=== PATIENT | male | born 1960 | race Caucasian/White ===

== ENCOUNTER 2017-08-01 19:33 | Inpatient (IN) | payer OTHER ==
--- OUTSIDE RECORDS SUMMARY | 2017-08-01 19:36 | XMS REPORT | Clinical Summary ---
:1960 Author Organization [facility] Address [address] [place] [address] Care Team Providers Name Role Phone Asked, No Pcp Primary Care Provider Unavailable Allergies Not on File Current Medications Not on file Active Problems Not on file Encounters Date Type Specialty Care Team Description 07/24/2017 Hospital Encounter Radiation Oncology Claude Grady MD 07/10/2017 Hospital Encounter Radiation Oncology Claude Grady MD after 07/31/2016 Social History Tobacco Use Types Packs/Day Years Used Date Never Assessed Sex Assigned at Date Recorded Not on file Last Filed Vital Signs Not on file Plan of Treatment Date Type Specialty Care Team Description 08/06/2017 Surgery Plastic Surgery Jacki Malave RADIATION SHMUEL GUERRA INSERTION, LESION [address], DIS[address] [facility], B [place], [place] SCAN W/ ANY OTHER [id number] INDICATED PROCEDURES [phone] 08/06/2017 Procedure Pass Plastic Surgery 08/06/2017 Hospital Encounter Plastic Surgery Jacki Malave MD [address] [place] [address] [phone] 08/13/2017 Surgery Plastic Surgery Jacki Malave RADIATION PLAQUE MD REMOVAL W/ ANY OTHER [address] INDICATED PROCEDURES [address] [place] [address] [phone] 08/13/2017 Procedure Pass Plastic Surgery 08/13/2017 Hospital Encounter Plastic Surgery Jacki Malave MD [address] [place] [address] [phone] Health Maintenance Due Date Last Done Comments COLONOSCOPY 2012 SHINGRIX VACCINE (#1) 2012 INFLUENZA VACCINE 10/24/2017 Results Not on fileafter 07/31/2016 Insurance Payer Benefit Plan / Group Subscriber ID Type Phone Address MEDICARE MEDICARE PART A AND B xxxxxxxxxx Medicare [place], [place] [phone] [address]
--- OUTSIDE RECORDS SUMMARY | 2017-08-01 19:37 | XMS REPORT | Clinical Summary ---
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 positioned. Ventricular volume is normal. Remote craniotomy noted on the right. Calvarium is otherwise intact. Visible paranasal sinuses are clear. No acute abnormality identified within the orbits. IMPRESSION: Chronic involutional changes without visible parenchymal infarct or hemorrhage. The findings were discussed with Dr. Faye of the [facility] emergency at 2250 hours on November 03, 2016. Signed: JR Connolly Robert MD Report Verified Date/Time: 11/03/2016 22:53:27 Reading Location: [facility] C013T Transitional Reading Room after 07/31/2016
--- OUTSIDE RECORDS SUMMARY | 2017-08-01 19:37 | XMS REPORT ---
:1960 [facility] Address [address] [place] [address] Dr. Iirzarry [address] [place] [id number] Care Team Providers Name Role Phone STEFF ROACH Unavailable Unavailable YUNIER ESTHER MAGUIRE Unavailable Unavailable Problems This patient has no known problems. Allergies, Adverse Reactions, Alerts This patient has no known allergies or adverse reactions. Medications This patient has no known medications. Results Test Description Test Time Test Comments Text Results Atomic Results Result Comments CBC W/PLT COUNT & AUTO DIFFERENTIAL 2017-01-31 12:21:00 Test Item Value Reference Range Comments WHITE BLOOD CELL COUNT (BEAKER) (test qthv=714) 16.8 K/ L 3.5-10.5 RED BLOOD CELL COUNT (BEAKER) (test rojf=139) 4.08 M/ L 4.63-6.08 HEMOGLOBIN (BEAKER) (test yltc=931) 13.5 GM/DL 13.7-17.5 HEMATOCRIT (BEAKER) (test syjg=553) 39.4 % 40.1-51.0 MEAN CORPUSCULAR VOLUME (BEAKER) (test pfny=122) 96.6 fL 79.0-92.2 MEAN CORPUSCULAR HEMOGLOBIN (BEAKER) (test sswx=211) 33.1 pg 25.7-32.2 MEAN CORPUSCULAR HEMOGLOBIN CONC (BEAKER) (test fqbi=214) 34.3 GM/DL 32.3- 36.5 RED CELL DISTRIBUTION WIDTH (BEAKER) (test otcp=950) 14.5 % 11.6-14.4 PLATELET COUNT (BEAKER) (test gcdl=694) 270 K/CU MM 150-450 MEAN PLATELET VOLUME (BEAKER) (test cpwy=300) 10.6 fL 9.4-12.4 NUCLEATED RED BLOOD CELLS (BEAKER) (test jazf=588) 0 /100 WBC 0-0 IMMATURE GRANULOCYTES-RELATIVE PERCENT (BEAKER) (test 1 % 0-1 vkwa=7420) NEUTROPHILS RELATIVE PERCENT (BEAKER) (test stcg=224) 44 % LYMPHOCYTES RELATIVE PERCENT (BEAKER) (test gozm=431) 38 % MONOCYTES RELATIVE PERCENT (BEAKER) (test zwge=708) 9 % EOSINOPHILS RELATIVE PERCENT (BEAKER) (test sppn=364) 6 % BASOPHILS RELATIVE PERCENT (BEAKER) (test morh=714) 1 % NEUTROPHILS ABSOLUTE COUNT (BEAKER) (test mfmv=526) 7.49 K/ L 1.78-5.38 LYMPHOCYTES ABSOLUTE COUNT (BEAKER) (test hniq=998) 6.41 K/ L 1.32-3.57 MONOCYTES ABSOLUTE COUNT (BEAKER) (test epnj=822) 1.58 K/ L 0.30-0.82 EOSINOPHILS ABSOLUTE COUNT (BEAKER) (test dffg=610) 1.00 K/ L 0.04-0.54 BASOPHILS ABSOLUTE COUNT (BEAKER) (test xkrm=231) 0.13 K/ L 0.01-0.08 (MANUAL DIFFERENTIAL)2017-01-31 12:21:00 Test Item Value Reference Range Comments TOTAL COUNTED (BEAKER) (test smyb=6304) WBC MORPHOLOGY (BEAKER) (test fnzz=402) Normal PLT MORPHOLOGY (BEAKER) (test riyr=896) Normal RBC MORPHOLOGY (BEAKER) (test wper=293) Normal [id number] 10:39:00 Test Item Value Reference Range Comments PARTIAL THROMBOPLASTIN TIME (BEAKER) (test 88.1 seconds 22.5-36.0 jetc=502) PROTHROMBIN [id number] 10:37:00 Test Item Value Reference Range Comments PROTIME (BEAKER) (test nfki=879) 16.3 seconds 11.7-14.7 INR (BEAKER) (test lcqa=007) 1.3 <=5.9 RECOMMENDED COUMADIN/WARFARIN INR THERAPY RANGESSTANDARD DOSE: 2.0 - 3.0 Includes: PROPHYLAXIS forvenous thrombosis, systemic embolization; TREATMENT for venous thrombosis and/or pulmonary embolus.HIGH RISK: Target INR is 2.5-3.5 for patients with mechanical heart valves.BASIC METABOLIC [id number] 05:14: 00 Test Item Value Reference Range Comments SODIUM (BEAKER) (test 139 meq/L 136-145 nqkz=293) POTASSIUM (BEAKER) (test 3.5 meq/L 3.5-5.1 nvgf=936) CHLORIDE (BEAKER) (test 106 meq/L 98-107 htdk=501) CO2 (BEAKER) (test 27 meq/L 22-29 ofjz=056) BLOOD UREA NITROGEN 8 mg/dL 7-21 (BEAKER) (test vuqx=417) CREATININE (BEAKER) (test 0.59 mg/dL 0.57-1.25 ofkb=549) GLUCOSE RANDOM (BEAKER) 100 mg/dL 70-105 (test ncwq=229) CALCIUM (BEAKER) (test 7.8 mg/dL 8.4-10.2 ujht=630) EGFR (BEAKER) (test 143 mL/min/1.73 sq m ESTIMATED GFR IS NOT tbks=2013) ACCURATE CREATININE CLEARANCE IN PREDICTING GLOMERULAR FILTRATION RATE. ESTIMATED GFR IS NOT APPLICABLE FOR DIALYSIS PATIENTS. [id number] 04:54:00 Test Item Value Reference Range Comments PARTIAL THROMBOPLASTIN TIME (BEAKER) (test 85.2 seconds 22.5-36.0 pqxv=100) [id number] 21:43:00 Test Item Value Reference Range Comments PARTIAL THROMBOPLASTIN TIME (BEAKER) (test 62.2 seconds 22.5-36.0 oeiw=762) [id number] 13:04:00 Test Item Value Reference Range Comments PARTIAL THROMBOPLASTIN TIME (BEAKER) (test 50.4 seconds 22.5-36.0 cois=335) BASIC METABOLIC [id number] 07:30:00 Test Item Value Reference Range Comments SODIUM (BEAKER) (test 138 meq/L 136-145 kibk=816) POTASSIUM (BEAKER) (test 5.1 meq/L 3.5-5.1 Specimen moderately iwbp=705) hemolyzed CHLORIDE (BEAKER) (test 108 meq/L 98-107 iomb=751) CO2 (BEAKER) (test 24 meq/L 22-29 oink=764) BLOOD UREA NITROGEN 18 mg/dL 7-21 (BEAKER) (test tkgz=876) CREATININE (BEAKER) (test 0.74 mg/dL 0.57-1.25 Specimen moderately qlhk=945) hemolyzed GLUCOSE RANDOM (BEAKER) 94 mg/dL 70-105 (test xvxo=156) CALCIUM (BEAKER) (test 8.1 mg/dL 8.4-10.2 dqem=274) EGFR (BEAKER) (test 110 mL/min/1.73 sq m ESTIMATED GFR IS NOT nmdb=4594) ACCURATE CREATININE CLEARANCE IN PREDICTING GLOMERULAR FILTRATION RATE. ESTIMATED GFR IS NOT APPLICABLE FOR DIALYSIS PATIENTS. [id number] 05:17:00 Test Item Value Reference Range Comments PROTIME (BEAKER) (test rbwz=413) 16.8 seconds 11.7-14.7 INR (BEAKER) (test iewd=605) 1.4 <=5.9 PARTIAL THROMBOPLASTIN TIME (BEAKER) (test 48.6 seconds 22.5-36.0 ksfy=055) RECOMMENDED COUMADIN/WARFARIN INR THERAPY RANGESSTANDARD DOSE: 2.0 - 3.0 Includes: PROPHYLAXIS forvenous thrombosis, systemic embolization; TREATMENT for venous thrombosis and/or pulmonary embolus.HIGH RISK: Target INR is 2.5-3.5 for patients with mechanical heart valves...CBC (HEMOGRAM ONLY)2017-01-30 04:55: 00 Test Item Value Reference Range Comments WHITE BLOOD CELL COUNT (BEAKER) (test ujlm=528) 13.8 K/ L 3.5-10.5 RED BLOOD CELL COUNT (BEAKER) (test zfei=540) 4.17 M/ L 4.63-6.08 HEMOGLOBIN (BEAKER) (test kegx=257) 13.6 GM/DL 13.7-17.5 HEMATOCRIT (BEAKER) (test dyfl=177) 40.8 % 40.1-51.0 MEAN CORPUSCULAR VOLUME (BEAKER) (test btfp=535) 97.8 fL 79.0-92.2 MEAN CORPUSCULAR HEMOGLOBIN (BEAKER) (test 32.6 pg 25.7-32.2 zysg=427) MEAN CORPUSCULAR HEMOGLOBIN CONC (BEAKER) (test 33.3 GM/DL 32.3-36.5 nwyy=074) RED CELL DISTRIBUTION WIDTH (BEAKER) (test 14.4 % 11.6-14.4 siyu=247) PLATELET COUNT (BEAKER) (test cpab=348) 224 K/CU MM 150-450 MEAN PLATELET VOLUME (BEAKER) (test vvdr=574) 11.2 fL 9.4-12.4 NUCLEATED RED BLOOD CELLS (BEAKER) (test 0 /100 WBC 0-0 ebzp=956) [id number] 17:57:00 Test Item Value Reference Range Comments ACTIVATED CLOTTING TIME 103 sec TESTED AT [facility] [address] ([address]) (test npcv=326) [facility] [address] [address], [id number] 17:05:00FINAL REPORT INDICATION:56- year-old male with peripheral vascular disease. Assess IVC size prior to peripheral angiogram. COMPARISON: None. TECHNIQUE: CT of the Chest, Abdomen and Pelvis WITHOUT intravenous contrast. Enteric contrast was not used. The exam was performed according to our department dose-optimization protocol, which includes automated exposure control, adjustments of mA and kV according to patient size. Iterative reconstructions are also sometimes employed. FINDINGS: VASCULAR:The superior and inferior vena cava demonstrate normal anatomy in caliber. Inferior vena cava measures 2.0 x 2.1 cm in cross-section. There is a stent in the left common iliac vein. Thereis a catheter or monitoring device in the right femoral vein passing through the right external and common iliac veins into the IVC confluence. There is minimal calcified atherosclerotic plaque of the distal abdominal aorta. No calcified atherosclerotic plaque is demonstrated in the thoracic aorta, thoracic aortic branches, iliac arteries, or visualized parts of the femoral arteries. Aorta is normal in caliber. THORAX : Linear opacities at the left lung base representing scar or subsegmental atelectasis. There is mild elevation of the left hemidiaphragm. No pneumonia, pulmonary edema, bronchiectasis, or pleural effusion is demonstrated. No suspicious pulmonary nodule or mass. Central airways are clear. Heart and pericardium are unremarkable. Pulmonary artery is normal in caliber. No mediastinal orhilar lymphadenopathy. Thyroid gland and esophagus are unremarkable. ABDOMEN and PELVIS: Patient is status post cholecystectomy. There is no biliary ductal dilatation. There is pneumobilia suggesting prior sphincterotomy. Liver is unremarkable. Diffuse mild fatty infiltration of the pancreas is noted.No pancreatic mass or ductal dilatation demonstrated. No [...] ribs, also possibly from prior trauma. SOFT TISSUES :There is diffuse moderate stranding of the subcutaneous fat of the right thigh and right groin. IMPRESSION: Normal caliber inferior vena cava (2.2 x 2.0 cm). Stent in the left common iliac vein. Stent patency not assessed in theabsence of intravenous contrast. Catheter versus moderate device in the right femoral vein extendingto the IVC confluence. Prior cholecystectomy. Pneumobilia suggest prior sphincterotomy. 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 Diffuse mild stranding of the pelvic fat, nonspecific. Stranding of the subcutaneous fat of the right thigh and groin, presumably from prior right femoral venous intervention. No drainable collection. Signed: Harris Schwartz MDReport Verified Date/Time: 01/29/2017 17:05:42 Reading Location: [address] Body Reading Room CT, CHEST, WITHOUT [id number] 17:05:00FINAL REPORT INDICATION:56-year-old male with peripheral vascular disease. Assess IVC size prior to peripheral angiogram. COMPARISON: None. TECHNIQUE: CT of the Chest, Abdomen and Pelvis WITHOUT intravenous contrast. Enteric contrast was not used. The exam was performed according to our department dose-optimization protocol, which includes automated exposure control, adjustments of mA and kV according to patient size. Iterative reconstructions are also sometimes employed. FINDINGS: VASCULAR:The superior and inferior vena cava demonstrate normal anatomy in caliber. Inferior vena cava measures 2.0 x 2.1 cm in cross-section. There is a stent in the left common iliac vein. Thereis a catheter or monitoring device in the [...] artery is normal in caliber. No mediastinal orhilar lymphadenopathy. Thyroid gland and esophagus are unremarkable. ABDOMEN and PELVIS: Patient is status post cholecystectomy. There is no biliary ductal dilatation. There is pneumobilia suggesting prior sphincterotomy. Liver is unremarkable. Diffuse mild fatty infiltration of the pancreas is noted.No pancreatic mass or ductal dilatation demonstrated. No pancreatic parenchymal calcification. 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 No upper abdominal lymphadenopathy demonstrated. No urolithiasis , hydronephrosis, or gross renal mass. Adrenal glands unremarkable. There is diffuse mild stranding of the pelvic fat and there is nonspecific engorgement of the perivesicular vessels. No gross bladder wall abnormality is demonstrated , though bladder is not distended so it [...] ribs, also possibly from prior trauma. SOFT TISSUES:There is diffuse moderate stranding of the subcutaneous fat of the right thigh and right groin. IMPRESSION : Normal caliber inferior vena cava (2.2 x 2.0 cm). Stent in the left common iliac vein. Stent patency not assessed in theabsence of intravenous contrast. Catheter versus moderate device in the right femoral vein extendingto the IVC confluence. Prior cholecystectomy. Pneumobilia suggest prior sphincterotomy. 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 Diffuse mild stranding of the pelvic fat, nonspecific. Stranding of the subcutaneous fat of the right thigh and groin, presumably from prior right femoral venous intervention. No drainable collection. Signed: Harris Schwartz MDReport Verified Date/Time: 01/29/2017 17:05:42 Reading Location: [facility] B1 C013Y CT Body Reading Room Electronically signed by:HARRIS SCHWARTZ M.D. on 2016 05:05 [id number] 12:52:00 Test Item Value Reference Range Comments FIBRINOGEN LEVEL (BEAKER) (test exkt=733) 100 mg/dl 225-434 Continue for duration of infusion.[id number] 10:18:00 Test Item Value Reference Range Comments PROTIME (BEAKER) (test razg=469) 19.2 seconds 11.7-14.7 INR (BEAKER) (test wdxg=037) 1.6 <=5.9 PARTIAL THROMBOPLASTIN TIME (BEAKER) (test 52.3 seconds 22.5-36.0 btdy=600) RECOMMENDED COUMADIN/WARFARIN INR THERAPY RANGESSTANDARD DOSE: 2.0 - 3.0 Includes: PROPHYLAXIS forvenous thrombosis, systemic embolization; TREATMENT for venous thrombosis and/or pulmonary embolus.HIGH RISK: Target INR is 2.5-3.5 for patients with mechanical heart valves.[id number] 06:50:00 Test Item Value Reference Range Comments FIBRINOGEN LEVEL (BEAKER) (test gzqh=539) 94 mg/dl 225-434 Continue for duration of infusion.CBC W/PLT COUNT & AUTO [id number] 04:30:00 Test Item Value Reference Range Comments WHITE BLOOD CELL COUNT (BEAKER) (test czee=079) 21.0 K/ L 3.5-10.5 RED BLOOD CELL COUNT (BEAKER) (test fvoj=720) 4.19 M/ L 4.63-6.08 HEMOGLOBIN (BEAKER) (test xsxh=326) 13.9 GM/DL 13.7-17.5 HEMATOCRIT (BEAKER) (test zenx=067) 40.6 % 40.1-51.0 MEAN CORPUSCULAR VOLUME (BEAKER) (test wxfu=600) 96.9 fL 79.0-92.2 MEAN CORPUSCULAR HEMOGLOBIN (BEAKER) (test 33.2 pg 25.7-32.2 akmq=098) MEAN CORPUSCULAR HEMOGLOBIN CONC (BEAKER) (test 34.2 GM/DL 32.3-36.5 royn=067) RED CELL DISTRIBUTION WIDTH (BEAKER) (test 14.0 % 11.6-14.4 uzvm=541) PLATELET COUNT (BEAKER) (test atqn=264) 212 K/CU MM 150-450 MEAN PLATELET VOLUME (BEAKER) (test jhpl=804) 10.3 fL 9.4-12.4 NUCLEATED RED BLOOD CELLS (BEAKER) (test 0 /100 WBC 0-0 dsuz=210) NEUTROPHILS RELATIVE PERCENT (BEAKER) (test 57 % jvmq=880) LYMPHOCYTES RELATIVE PERCENT (BEAKER) (test 28 % bofl=442) MONOCYTES RELATIVE PERCENT (BEAKER) (test 13 % vmat=169) EOSINOPHILS RELATIVE PERCENT (BEAKER) (test 1 % rccl=142) BASOPHILS RELATIVE PERCENT (BEAKER) (test 0 % akee=897) NEUTROPHILS ABSOLUTE COUNT (BEAKER) (test 11.97 K/ L 1.78-5.38 jtks=400) LYMPHOCYTES ABSOLUTE COUNT (BEAKER) (test 5.93 K/ L 1.32-3.57 wavq=410) MONOCYTES ABSOLUTE COUNT (BEAKER) (test 2.73 K/ L 0.30-0.82 epfb=566) EOSINOPHILS ABSOLUTE COUNT (BEAKER) (test 0.19 K/ L 0.04-0.54 zvms=957) BASOPHILS ABSOLUTE COUNT (BEAKER) (test 0.05 K/ L 0.01-0.08 fesk=081) IMMATURE GRANULOCYTES-RELATIVE PERCENT (BEAKER) 1 % 0-1 (test gumz=7936) BASIC METABOLIC [id number] 03:37:00 Test Item Value Reference Range Comments SODIUM (BEAKER) (test 139 meq/L 136-145 tpkd=389) POTASSIUM (BEAKER) (test 4.0 meq/L 3.5-5.1 Specimen slightly zcpf=821) hemolyzed CHLORIDE (BEAKER) (test 109 meq/L 98-107 sbhk=591) CO2 (BEAKER) (test 25 meq/L 22-29 jdwl=902) BLOOD UREA NITROGEN 12 mg/dL 7-21 (BEAKER) (test qnuy=753) CREATININE (BEAKER) (test 0.64 mg/dL 0.57-1.25 Specimen slightly qhoz=585) hemolyzed GLUCOSE RANDOM (BEAKER) 109 mg/dL 70-105 (test ycii=288) CALCIUM (BEAKER) (test 7.8 mg/dL 8.4-10.2 gjbl=057) EGFR (BEAKER) (test 130 mL/min/1.73 sq m ESTIMATED GFR IS NOT aaod=9925) ACCURATE CREATININE CLEARANCE IN PREDICTING GLOMERULAR FILTRATION RATE. ESTIMATED GFR IS NOT APPLICABLE FOR DIALYSIS PATIENTS. [id number] 03:36:00 Test Item Value Reference Range Comments PROTIME (BEAKER) (test kkxu=290) 20.1 seconds 11.7-14.7 INR (BEAKER) (test ljut=458) 1.7 <=5.9 PARTIAL THROMBOPLASTIN TIME (BEAKER) (test 48.7 seconds 22.5-36.0 rikx=612) RECOMMENDED COUMADIN/WARFARIN INR THERAPY RANGESSTANDARD DOSE: 2.0 - 3.0 Includes: PROPHYLAXIS forvenous thrombosis, systemic embolization; TREATMENT for venous thrombosis and/or pulmonary embolus.HIGH RISK: Target INR is 2.5-3.5 for patients with mechanical heart valves...[id number] 03:36:00 Test Item Value Reference Range Comments PARTIAL THROMBOPLASTIN TIME (BEAKER) (test 48.7 seconds 22.5-36.0 efsp=446) [id number] 00:30:00 Test Item Value Reference Range Comments FIBRINOGEN LEVEL (BEAKER) (test xsrf=577) 109 mg/dl 225-434 Continue for duration of infusion.[id number] 19:11:00 Test Item Value Reference Range Comments PARTIAL THROMBOPLASTIN TIME (BEAKER) (test 49.3 seconds 22.5-36.0 xzcp=023) [id number] 18:42:00 Test Item Value Reference Range Comments FIBRINOGEN LEVEL (BEAKER) (test jhvg=767) 88 mg/dl 225-434 Continue for duration of infusion.[id number] 12:35:00 Test Item Value Reference Range Comments FIBRINOGEN LEVEL (BEAKER) (test zkkm=215) 106 mg/dl 225-434 Continue for duration of infusion.[id number] 08:12:00 Test Item Value Reference Range Comments FIBRINOGEN LEVEL (BEAKER) (test dwvv=008) 90 mg/dl 225-434 Continue for duration of infusion..CBC W/PLT COUNT & AUTO [id number] 08:07:00 Test Item Value Reference Range Comments WHITE BLOOD CELL COUNT (BEAKER) (test ctcf=000) 24.1 K/ L 3.5-10.5 RED BLOOD CELL COUNT (BEAKER) (test gztb=809) 4.47 M/ L 4.63-6.08 HEMOGLOBIN (BEAKER) (test lukl=401) 15.0 GM/DL 13.7-17.5 HEMATOCRIT (BEAKER) (test erql=181) 43.8 % 40.1-51.0 MEAN CORPUSCULAR VOLUME (BEAKER) (test kyvi=465) 98.0 fL 79.0-92.2 MEAN CORPUSCULAR HEMOGLOBIN (BEAKER) (test 33.6 pg 25.7-32.2 tivp=142) MEAN CORPUSCULAR HEMOGLOBIN CONC (BEAKER) (test 34.2 GM/DL 32.3-36.5 daeh=762) RED CELL DISTRIBUTION WIDTH (BEAKER) (test 13.9 % 11.6-14.4 ogrb=775) PLATELET COUNT (BEAKER) (test ncxo=450) 194 K/CU MM 150-450 MEAN PLATELET VOLUME (BEAKER) (test dbnq=613) 11.0 fL 9.4-12.4 NUCLEATED RED BLOOD CELLS (BEAKER) (test 0 /100 WBC 0-0 ishs=102) NEUTROPHILS RELATIVE PERCENT (BEAKER) (test 81 % wwee=847) LYMPHOCYTES RELATIVE PERCENT (BEAKER) (test 7 % ovnl=270) MONOCYTES RELATIVE PERCENT (BEAKER) (test 11 % plnu=431) EOSINOPHILS RELATIVE PERCENT (BEAKER) (test 0 % puhf=102) BASOPHILS RELATIVE PERCENT (BEAKER) (test 0 % kfbn=399) NEUTROPHILS ABSOLUTE COUNT (BEAKER) (test 19.51 K/ L 1.78-5.38 uneg=894) LYMPHOCYTES ABSOLUTE COUNT (BEAKER) (test 1.66 K/ L 1.32-3.57 nvua=682) MONOCYTES ABSOLUTE COUNT (BEAKER) (test 2.68 K/ L 0.30-0.82 xwbz=417) EOSINOPHILS ABSOLUTE COUNT (BEAKER) (test 0.00 K/ L 0.04-0.54 uhdv=780) BASOPHILS ABSOLUTE COUNT (BEAKER) (test 0.03 K/ L 0.01-0.08 kjkp=275) IMMATURE GRANULOCYTES-RELATIVE PERCENT (BEAKER) 1 % 0-1 (test fpwr=9397) BASIC METABOLIC [id number] 07:47:00 Test Item Value Reference Range Comments SODIUM (BEAKER) (test 132 meq/L 136-145 fack=507) POTASSIUM (BEAKER) (test 4.6 meq/L 3.5-5.1 Specimen markedly kbmd=679) hemolyzed CHLORIDE (BEAKER) (test 102 meq/L 98-107 dbpa=307) CO2 (BEAKER) (test 23 meq/L 22-29 jama=903) BLOOD UREA NITROGEN 11 mg/dL 7-21 (BEAKER) (test cups=417) CREATININE (BEAKER) (test 0.68 mg/dL 0.57-1.25 Specimen markedly bqoq=806) hemolyzed GLUCOSE RANDOM (BEAKER) 124 mg/dL 70-105 (test jebf=498) CALCIUM (BEAKER) (test 8.3 mg/dL 8.4-10.2 qzls=875) EGFR (BEAKER) (test 122 mL/min/1.73 sq m ESTIMATED GFR IS NOT jhuv=7649) ACCURATE CREATININE CLEARANCE IN PREDICTING GLOMERULAR FILTRATION RATE. ESTIMATED GFR IS NOT APPLICABLE FOR DIALYSIS PATIENTS. [id number] 07:14:00 Test Item Value Reference Range Comments FIBRINOGEN LEVEL (BEAKER) (test qmph=276) 90 mg/dl 225-434 Continue for duration of infusion.[id number] 07:08:00 Test Item Value Reference Range Comments PROTIME (BEAKER) (test zwse=351) 23.3 seconds 11.7-14.7 INR (BEAKER) (test omdm=442) 2.1 <=5.9 PARTIAL THROMBOPLASTIN TIME (BEAKER) (test 72.6 seconds 22.5-36.0 mdms=850) RECOMMENDED COUMADIN/WARFARIN INR THERAPY RANGESSTANDARD DOSE: 2.0 - 3.0 Includes: PROPHYLAXIS forvenous thrombosis, systemic embolization; TREATMENT for venous thrombosis and/or pulmonary embolus.HIGH RISK: Target INR is 2.5-3.5 for patients with mechanical heart valves.Continue for duration of infusion..Continue for duration of infusion..[id number] 02:44:00 Test Item Value Reference Range Comments FIBRINOGEN LEVEL (BEAKER) (test tvvz=953) 161 mg/dl 225-434 [id number] 00:57:00 Test Item Value Reference Range Comments FIBRINOGEN LEVEL (BEAKER) (test kbpv=763) 197 mg/dl 225-434 Continue for duration of infusion.BASIC METABOLIC [id number] 17:28:00 Test Item Value Reference Range Comments SODIUM (BEAKER) (test 131 meq/L 136-145 tizc=925) POTASSIUM (BEAKER) (test 4.1 meq/L 3.5-5.1 Specimen slightly ycsd=375) hemolyzed CHLORIDE (BEAKER) (test 100 meq/L 98-107 cmct=941) CO2 (BEAKER) (test 23 meq/L 22-29 yzav=573) BLOOD UREA NITROGEN 9 mg/dL 7-21 (BEAKER) (test zvrn=025) CREATININE (BEAKER) (test 0.67 mg/dL 0.57-1.25 Specimen slightly yqmq=468) hemolyzed GLUCOSE RANDOM (BEAKER) 97 mg/dL 70-105 (test reay=464) CALCIUM (BEAKER) (test 8.8 mg/dL 8.4-10.2 rkfc=669) EGFR (BEAKER) (test 124 mL/min/1.73 sq m ESTIMATED GFR IS NOT erdf=2864) ACCURATE CREATININE CLEARANCE IN PREDICTING GLOMERULAR FILTRATION RATE. ESTIMATED GFR IS NOT APPLICABLE FOR DIALYSIS PATIENTS. [id number] 16:59:00 Test Item Value Reference Range Comments FIBRINOGEN LEVEL (BEAKER) (test ykbd=936) 432 mg/dl 225-434 Obtain lab prior to starting thrombolytic infusion.Obtain lab prior to starting thrombolytic infusion.[id number] 16:59:00 Test Item Value Reference Range Comments PROTIME (BEAKER) (test jtpa=537) 19.6 seconds 11.7-14.7 INR (BEAKER) (test vkke=114) 1.7 <=5.9 PARTIAL THROMBOPLASTIN TIME (BEAKER) (test 36.7 seconds 22.5-36.0 tlmf=721) RECOMMENDED COUMADIN/WARFARIN INR THERAPY RANGESSTANDARD DOSE: 2.0 - 3.0 Includes: PROPHYLAXIS forvenous thrombosis, systemic embolization; TREATMENT for venous thrombosis and/or pulmonary embolus.HIGH RISK: Target INR is 2.5-3.5 for patients with mechanical heart valves.Obtain lab prior to starting thrombolytic infusion.Obtain lab prior to starting thrombolytic infusion.Obtain lab prior to starting thrombolytic infusion.Obtain lab prior to starting thrombolytic infusion.CBC W/PLT COUNT & AUTO [id number] 16:56:00 Test Item Value Reference Range Comments WHITE BLOOD CELL COUNT (BEAKER) (test ljxw=093) 17.5 K/ L 3.5-10.5 RED BLOOD CELL COUNT (BEAKER) (test ixyg=474) 4.74 M/ L 4.63-6.08 HEMOGLOBIN (BEAKER) (test ivot=680) 15.7 GM/DL 13.7-17.5 HEMATOCRIT (BEAKER) (test mofg=115) 46.1 % 40.1-51.0 MEAN CORPUSCULAR VOLUME (BEAKER) (test zrtn=001) 97.3 fL 79.0-92.2 MEAN CORPUSCULAR HEMOGLOBIN (BEAKER) (test 33.1 pg 25.7-32.2 azsu=029) MEAN CORPUSCULAR HEMOGLOBIN CONC (BEAKER) (test 34.1 GM/DL 32.3-36.5 vbqo=655) RED CELL DISTRIBUTION WIDTH (BEAKER) (test 14.0 % 11.6-14.4 pobp=272) PLATELET COUNT (BEAKER) (test ital=158) 257 K/CU MM 150-450 MEAN PLATELET VOLUME (BEAKER) (test iacd=933) 10.3 fL 9.4-12.4 NUCLEATED RED BLOOD CELLS (BEAKER) (test 0 /100 WBC 0-0 xayt=225) NEUTROPHILS RELATIVE PERCENT (BEAKER) (test 82 % egpw=115) LYMPHOCYTES RELATIVE PERCENT (BEAKER) (test 8 % uqrx=154) MONOCYTES RELATIVE PERCENT (BEAKER) (test 7 % lshz=400) EOSINOPHILS RELATIVE PERCENT (BEAKER) (test 1 % nfng=866) BASOPHILS RELATIVE PERCENT (BEAKER) (test 1 % iluh=139) NEUTROPHILS ABSOLUTE COUNT (BEAKER) (test 14.36 K/ L 1.78-5.38 cztl=695) LYMPHOCYTES ABSOLUTE COUNT (BEAKER) (test 1.44 K/ L 1.32-3.57 dgor=992) MONOCYTES ABSOLUTE COUNT (BEAKER) (test 1.22 K/ L 0.30-0.82 gack=246) EOSINOPHILS ABSOLUTE COUNT (BEAKER) (test 0.25 K/ L 0.04-0.54 lnrw=984) BASOPHILS ABSOLUTE COUNT (BEAKER) (test 0.08 K/ L 0.01-0.08 rlse=904) IMMATURE GRANULOCYTES-RELATIVE PERCENT (BEAKER) 1 % 0-1 (test gadr=1648) [id number] 11:46:00 Test Item Value Reference Range Comments PARTIAL THROMBOPLASTIN TIME (BEAKER) (test 86.4 seconds 22.5-36.0 hxzl=836) BASIC METABOLIC [id number] 03:23:00 Test Item Value Reference Range Comments SODIUM (BEAKER) (test 133 meq/L 136-145 asfn=548) POTASSIUM (BEAKER) (test 3.9 meq/L 3.5-5.1 miez=968) CHLORIDE (BEAKER) (test 99 meq/L 98-107 cost=692) CO2 (BEAKER) (test 26 meq/L 22-29 mhad=887) BLOOD UREA NITROGEN 7 mg/dL 7-21 (BEAKER) (test yncd=821) CREATININE (BEAKER) (test 0.70 mg/dL 0.57-1.25 sjsu=352) GLUCOSE RANDOM (BEAKER) 114 mg/dL 70-105 (test vvbt=139) CALCIUM (BEAKER) (test 8.7 mg/dL 8.4-10.2 gurv=981) EGFR (BEAKER) (test 118 mL/min/1.73 sq m ESTIMATED GFR IS NOT lmts=3173) ACCURATE CREATININE CLEARANCE IN PREDICTING GLOMERULAR FILTRATION RATE. ESTIMATED GFR IS NOT APPLICABLE FOR DIALYSIS PATIENTS. [id number] 03:03:00 Test Item Value Reference Range Comments PARTIAL THROMBOPLASTIN TIME (BEAKER) (test 78.2 seconds 22.5-36.0 jwnm=199) Prior to initiating heparinCBC (HEMOGRAM ONLY)2017-01-27 02:50:00 Test Item Value Reference Range Comments WHITE BLOOD CELL COUNT (BEAKER) (test hokt=386) 19.9 K/ L 3.5-10.5 RED BLOOD CELL COUNT (BEAKER) (test gqgb=323) 4.75 M/ L 4.63-6.08 HEMOGLOBIN (BEAKER) (test zslp=977) 15.7 GM/DL 13.7-17.5 HEMATOCRIT (BEAKER) (test iqyl=016) 46.1 % 40.1-51.0 MEAN CORPUSCULAR VOLUME (BEAKER) (test zaxz=987) 97.1 fL 79.0-92.2 MEAN CORPUSCULAR HEMOGLOBIN (BEAKER) (test 33.1 pg 25.7-32.2 hrth=116) MEAN CORPUSCULAR HEMOGLOBIN CONC (BEAKER) (test 34.1 GM/DL 32.3-36.5 znnl=041) RED CELL DISTRIBUTION WIDTH (BEAKER) (test 14.0 % 11.6-14.4 dzuc=206) PLATELET COUNT (BEAKER) (test xzmf=368) 253 K/CU MM 150-450 MEAN PLATELET VOLUME (BEAKER) (test rqxl=914) 10.8 fL 9.4-12.4 NUCLEATED RED BLOOD CELLS (BEAKER) (test 0 /100 WBC 0-0 znqb=243) LIPID [id number] 21:47:00 Test Item Value Reference Range Comments TRIGLYCERIDES (BEAKER) (test mgeq=027) 46 mg/dL CHOLESTEROL (BEAKER) (test ugxp=315) 106 mg/dL HDL CHOLESTEROL (BEAKER) (test umoi=944) 34 mg/dL LDL CHOLESTEROL CALCULATED (BEAKER) (test 63 mg/dL rjip=113) Triglyceride Reference Range: Low Risk <150 Borderline 150- 199 High Risk 200-499 Very High Risk >=500Cholesterol Reference Range: Low Risk <200 Borderline 200-239 High Risk > 240HDL Cholesterol Reference Range: Low Risk >=60 High Risk <40LDL Cholesterol Reference Range: Optimal <100 Near Optimal 100-129 Borderline 130-159 High 160-189 Very High >=[id number] 16:59:00 Test Item Value Reference Range Comments RPR SCREEN (BEAKER) (test jzki=571) Nonreactive Nonreactive HEMOGLOBIN [id number] 11:47:00 Test Item Value Reference Range Comments HEMOGLOBIN A1C (BEAKER) (test ellr=668) 5.5 % 4.3-6.1 BASIC METABOLIC [id number] 07:33:00 Test Item Value Reference Range Comments SODIUM (BEAKER) (test 140 meq/L 136-145 dxne=172) POTASSIUM (BEAKER) (test 3.7 meq/L 3.5-5.1 exro=139) CHLORIDE (BEAKER) (test 108 meq/L 98-107 avas=460) CO2 (BEAKER) (test 27 meq/L 22-29 lvnd=847) BLOOD UREA NITROGEN 6 mg/dL 7-21 (BEAKER) (test refy=627) CREATININE (BEAKER) (test 0.65 mg/dL 0.57-1.25 wjta=335) GLUCOSE RANDOM (BEAKER) 91 mg/dL 70-105 (test gzby=404) CALCIUM (BEAKER) (test 8.7 mg/dL 8.4-10.2 riwe=440) EGFR (BEAKER) (test 128 mL/min/1.73 sq m ESTIMATED GFR IS NOT lwvw=5281) ACCURATE CREATININE CLEARANCE IN PREDICTING GLOMERULAR FILTRATION RATE. ESTIMATED GFR IS NOT APPLICABLE FOR DIALYSIS PATIENTS. VITAMIN [id number] 02:45:00 Test Item Value Reference Range Comments VITAMIN B12 (BEAKER) (test byil=262) 211 pg/mL 213-816 TSH/FREE T4 IF [id number] 02:45:00 Test Item Value Reference Range Comments THYROID STIMULATING HORMONE (BEAKER) (test 3.98 uIU/mL 0.35-4.94 mgfo=909) SEDIMENTATION [id number] 01:18:00 Test Item Value Reference Range Comments SEDIMENTATION RATE, ERYTHROCYTE (BEAKER) (test 4 mm/HR 0-20 thig=173) CREATINE KINASE (CK), TOTAL AND [id number] 00:35:00 Test Item Value Reference Range Comments CREATINE KINASE TOTAL (BEAKER) (test deet=596) 74 U/L 29-200 CREATINE KINASE-MB (BEAKER) (test kruy=692) 1.2 ng/mL 0.0-6.6 CREATINE KINASE-MB INDEX (BEAKER) (test ttns=470) 1.6 % Effective 02/10/2014: CK-MB Reference Range ChangeNew: 0.0-6.6 Previous: 0.0- 4.9CK-MB Reference Range:<6.7 Normal6.7-10.0 Borderline>10.0 AbnormalTROPONIN [id number] 00:35:00 Test Item Value Reference Range Comments TROPONIN I (BEAKER) (test bqrw=069) < ng/mL 0.00-0.03 Effective 02/10/2014: Reference Range ChangeNew: 0.00-0.03 Previous 0.00- 0.15Troponin I (TnI) levels must be interpreted in the context of the presenting symptoms and the clinical findings. Elevated TnI levels indicate myocardial damage, but are not specific for ischemic heart disease. Elevated TnI levels are seen in patients with other cardiac conditions (including myocarditis and congestive heartfailure), and slight TnI elevations occur in patients with other conditions, including sepsis, renalfailure, acidosis, acute neurological disease, and persistent tachyarrhythmia.B-TYPE NATRIURETIC FACTOR ( BNP)2016-11-04 00:31:00 Test Item Value Reference Range Comments B-TYPE NATRIURETIC PEPTIDE (BEAKER) (test ltou=021) 51 pg/mL 0-100 BASIC METABOLIC [id number] 00:29:00 Test Item Value Reference Range Comments SODIUM (BEAKER) (test 137 meq/L 136-145 xdln=348) POTASSIUM (BEAKER) (test 3.8 meq/L 3.5-5.1 Specimen slightly qqxf=927) hemolyzed CHLORIDE (BEAKER) (test 105 meq/L 98-107 ukld=182) CO2 (BEAKER) (test 23 meq/L 22-29 fxhw=781) BLOOD UREA NITROGEN 6 mg/dL 7-21 (BEAKER) (test zhlo=234) CREATININE (BEAKER) 0.84 mg/dL 0.57-1.25 Specimen slightly (test pohu=216) hemolyzed GLUCOSE RANDOM (BEAKER) 102 mg/dL 70-105 (test tkoy=145) CALCIUM (BEAKER) (test 9.0 mg/dL 8.4-10.2 bamv=495) EGFR (BEAKER) (test 95 mL/min/1.73 sq m INSUFFICIENT CLINICAL DATA udpz=4644) TO CALCULATE ESTIMATED GFR. [id number] 00:29:00 Test Item Value Reference Range Comments MAGNESIUM (BEAKER) (test 2.3 mg/dL 1.6-2.6 Specimen slightly hemolyzed cuxn=889) LIPID [id number] 00:29:00 Test Item Value Reference Range Comments TRIGLYCERIDES (BEAKER) (test 57 mg/dL Specimen slightly hemolyzed sxrr=009) CHOLESTEROL (BEAKER) (test 131 mg/dL Specimen slightly hemolyzed syzy=709) HDL CHOLESTEROL (BEAKER) (test 40 mg/dL vxjv=465) LDL CHOLESTEROL CALCULATED 80 mg/dL (BEAKER) (test toya=714) Triglyceride Reference Range: Low Risk <150 Borderline 150- 199 High Risk 200-499 Very High Risk >=500Cholesterol Reference Range: Low Risk <200 Borderline 200-239 High Risk > 240HDL Cholesterol Reference Range: Low Risk >=60 High Risk <40LDL Cholesterol Reference Range: Optimal <100 Near Optimal 100-129 Borderline 130-159 High 160-189 Very High >=190C-REACTIVE [id number] 00:24:00 Test Item Value Reference Range Comments C-REACTIVE PROTEIN (BEAKER) (test bbfo=555) 0.43 mg/dL 0.00-0.50 [id number] 23:42:00 Test Item Value Reference Range Comments PROTIME (BEAKER) (test mtlb=979) 14.3 seconds 11.7-14.7 INR (BEAKER) (test uaup=230) 1.1 <=5.9 PARTIAL THROMBOPLASTIN TIME (BEAKER) (test 26.4 seconds 22.5-36.0 mlxu=074) RECOMMENDED COUMADIN/WARFARIN INR THERAPY RANGESSTANDARD DOSE: 2.0 - 3.0 Includes: PROPHYLAXIS forvenous thrombosis, systemic embolization; TREATMENT for venous thrombosis and/or pulmonary embolus.HIGH RISK: Target INR is 2.5-3.5 for patients with mechanical heart valves.CBC W/PLT COUNT & AUTO [id number] 23:16:00 Test Item Value Reference Range Comments WHITE BLOOD CELL COUNT (BEAKER) (test yzqt=803) 12.2 K/ L 3.5-10.5 RED BLOOD CELL COUNT (BEAKER) (test lavf=034) 4.91 M/ L 4.63-6.08 HEMOGLOBIN (BEAKER) (test ojds=616) 16.5 GM/DL 13.7-17.5 HEMATOCRIT (BEAKER) (test zhpu=839) 48.6 % 40.1-51.0 MEAN CORPUSCULAR VOLUME (BEAKER) (test oahi=101) 99.0 fL 79.0-92.2 MEAN CORPUSCULAR HEMOGLOBIN (BEAKER) (test 33.6 pg 25.7-32.2 fdoy=712) MEAN CORPUSCULAR HEMOGLOBIN CONC (BEAKER) (test 34.0 GM/DL 32.3-36.5 yyrz=263) RED CELL DISTRIBUTION WIDTH (BEAKER) (test 15.2 % 11.6-14.4 dhxf=682) PLATELET COUNT (BEAKER) (test ejim=626) 369 K/CU MM 150-450 MEAN PLATELET VOLUME (BEAKER) (test tydh=385) 10.4 fL 9.4-12.4 NUCLEATED RED BLOOD CELLS (BEAKER) (test 0 /100 WBC 0-0 ffiv=266) NEUTROPHILS RELATIVE PERCENT (BEAKER) (test 61 % momy=909) LYMPHOCYTES RELATIVE PERCENT (BEAKER) (test 27 % finb=527) MONOCYTES RELATIVE PERCENT (BEAKER) (test 9 % dswj=984) EOSINOPHILS RELATIVE PERCENT (BEAKER) (test 2 % agru=779) BASOPHILS RELATIVE PERCENT (BEAKER) (test 1 % ibdd=064) NEUTROPHILS ABSOLUTE COUNT (BEAKER) (test 7.42 K/ L 1.78-5.38 vegn=373) LYMPHOCYTES ABSOLUTE COUNT (BEAKER) (test 3.31 K/ L 1.32-3.57 kzjw=020) MONOCYTES ABSOLUTE COUNT (BEAKER) (test 1.15 K/ L 0.30-0.82 jyjm=221) EOSINOPHILS ABSOLUTE COUNT (BEAKER) (test 0.21 K/ L 0.04-0.54 zwnj=604) BASOPHILS ABSOLUTE COUNT (BEAKER) (test 0.09 K/ L 0.01-0.08 flbj=028) IMMATURE GRANULOCYTES-RELATIVE PERCENT (BEAKER) 0 % 0-1 (test jyav=0849) POCT-GLUCOSE [id number] 22:55:00 Test Item Value Reference Range Comments POC-GLUCOSE METER (BEAKER) 108 mg/dL 70-110 TESTED AT [facility] [address] (test ytjs=8657) [facility] [address]
[2017-08-01] MEDS ORDERED: ONDANSETRON 4 MG/2 ML VIAL ONE (21:19)
[2017-08-01] MEDS ORDERED: NA CHLORIDE 0.9% 500 ML ONE (21:19)
[2017-08-01 21:20] LABS: Absolute Lymphocytes (CBC) 3.2 K/uL (0.7-4.9); Absolute Monocytes 0.9 K/uL (0.1-1.3); Absolute Neutrophil 5.2 K/uL (1.8-8.0); Basophils % 0.7 % (0-1.3); Eosinophils % 1.4 % (0-4.4); Hematocrit 53.3 % (39.6-49.0); Lymphocytes % 33.7 % (15.3-44.8); MCV 98.5 fL (80-100); MPV 9.8 fL (7.6-11.3); RBC Red Blood Cell Count 5.41 M/uL (4.33-5.43)
[2017-08-01 21:25] LABS: BUN Blood Urea Nitrogen 10 mg/dL (6-20); Bicarbonate 28 mEq/L (21-31); Glucose Level 106 mg/dL (65-120); Potassium 3.9 mEq/L (3.6-5.0); Sodium Level 142 mEq/L (135-145)
--- NOTE | 2017-08-01 23:24 | EDPHYS ---
Physician Documentation [facility] Name: Pascual Chavez II Age: 57 yrs Sex: Male : 1960 Arrival Date: 08/01/2017 Time: 19:35 Bed 19 Private MD: Sajan Pratt ED Physician Omer Zuniga HPI: 08/01 21:03 This 57 yrs old Male presents to ER via Wheelchair with complaints of rn Vomiting, Difficulty Swallowing - after stroke. 21:03 The patient presents to the emergency department with nausea, vomiting. Onset: The rn symptoms/episode began/occurred today. Possible causes: unknown. Severity of symptoms: At their worst the symptoms were moderate in the emergency department the symptoms have improved. The patient has not experienced similar symptoms in the past. Reports stroke 1 month ago, today was eating potatoes and drinking, didn't feel like anything got stuck, but has been throwing up several times since lunch. No fever/abd pain/diarrhea. Reports has dysphagia from stroke, discharged on thickened fluids, has been eating roast beef and drinking dr pepper. States feels ok right now other than keeps throwing up.. Historical: - Allergies: 20:02 No Known Allergies; ak1 - Home Meds: 20:02 Lipitor 20 mg Oral tab 1 tab [Active]; citalopram 10 mg tab 1 tab once daily [Active]; ak1 - PMHx: 20:02 Hyperlipidemia; Depression; ak1 - PSHx: 20:02 multiple abd sx; chest tube; brain sx; Cholecystectomy; spleenectomy; left leg stint; ak1 - Immunization history:: Adult Immunizations up to date. - Social history:: Smoking status: Patient/guardian denies using tobacco, the patient reports quitting approximately 1 years ago. - Family history:: not pertinent. - Hospitalizations: : No recent hospitalization is reported. ROS: 21:03 Constitutional: Negative for fever, chills, and weight loss, Eyes: Negative for injury, rn pain, redness, and discharge, Neck: Negative for injury, pain, and swelling, Cardiovascular: Negative for chest pain, palpitations, and edema, Respiratory: Negative for shortness of breath, cough, wheezing, and pleuritic chest pain, Abdomen/GI: Negative for abdominal pain, diarrhea, and constipation, Back: Negative for injury and pain, MS/Extremity: Negative for injury and deformity, Skin: Negative for injury, rash, and discoloration, Neuro: Negative for headache, seizure. Exam: 21:03 Constitutional: This is a well developed, well nourished patient who is awake, alert, rn and in no acute distress. Smiling, no drooling or trouble with secretions. Head/Face: Normocephalic, atraumatic. Eyes: Pupils equal round and reactive to light, extra-ocular motions intact. Lids and lashes normal. Conjunctiva and sclera are non-icteric and not injected. Cornea within normal limits. Periorbital areas with no swelling, redness, or edema. Neck: Trachea midline, no thyromegaly or masses palpated, and no cervical lymphadenopathy. Supple, full range of motion without nuchal rigidity, or vertebral point tenderness. No Meningismus. Cardiovascular: Regular rate and rhythm with a normal S1 and S2. No gallops, murmurs, or rubs. Normal PMI, no JVD. No pulse deficits. Respiratory: Lungs have equal breath sounds bilaterally, clear to auscultation and percussion. No rales, rhonchi or wheezes noted. No increased work of breathing, no retractions or nasal flaring. Abdomen/GI: Soft, non-tender, with normal bowel sounds. No distension or tympany. No guarding or rebound. No evidence of tenderness throughout. MS/ Extremity: Pulses equal, no cyanosis. Neuro: Awake and alert, GCS 15, oriented to person, place, time, and situation. + baseline LUE weakness and LLE weakness, able to get to bed with some help Vital Signs: 20:02 BP 118 / 88; Pulse 77; Resp 18; Temp 97.9(TE); Pulse Ox 95% on R/A; Weight 110.22 kg ak1 (R); Height 6 ft. 4 in. (193.04 cm) (R); Pain 0/10; 21:34 BP 133 / 90; Pulse 54; Resp 16; Pulse Ox 96% on R/A; dh3 23:07 BP 131 / 83; Pulse 61; Resp 17; Pulse Ox 96% on R/A; Pain 0/10; ed1 20:02 Body Mass Index 29.58 (110.22 kg, 193.04 cm) ak1 MDM: 20:21 Patient medically screened. rn 23:20 Differential diagnosis: viral gastroenteritis, gastroenteritis, food bolus stuck, rn dysphagia, neurological problem. Data reviewed: vital signs, nurses notes, lab test result(s), radiologic studies, plain films, and as a result, I will admit patient. Counseling: I had a detailed discussion with the patient and/or guardian regarding: the historical points, exam findings, and any diagnostic results supporting the discharge/admit diagnosis, lab results, radiology results, the need for further work-up and treatment in the hospital. Admission orders: after a detailed discussion of the patient's condition and case, the admit orders are written by me. ED course: Pt not tolerating PO, not able to tolerate even sips of water, not acting like food bolus stuck, but can't get water down. Possible complication of stroke/dysphagia as neurological etiology vs combination with food stuck as tried solids when supposed to be on thickened fluids. Admitted to Dr. Pratt, will consult GI in AM and continue fluids/zofran.. 08/01 20:34 Order name: CBC with Diff; Complete Time: 22:07 rn 08/01 20:34 Order name: Basic Metabolic Panel; Complete Time: 22:07 rn 08/01 20:34 Order name: XRAY Chest Pa And Lat (2 Views) rn 08/01 20:34 Order name: IV Start; Complete Time: 21:17 rn 08/01 20:35 Order name: EKG; Complete Time: 20:35 rn 08/01 20:35 Order name: EKG - Nurse/Tech; Complete Time: 21:27 rn Administered Medications: :27 Drug: NS 0.9% 500 ml Route: IV; Rate: bolus; Site: right forearm; aj1 22:24 Follow up: IV Status: Completed infusion; IV Intake: 500ml aj1 21:27 Drug: Zofran 4 mg Route: IVP; Site: right forearm; aj1 22:24 Follow up: Response: No adverse reaction aj1 23:35 Drug: Glucagon 1 mg Route: IVP; Site: right antecubital; ea 08/02 00:38 Follow up: Response: No adverse reaction; No change in condition ed1 Disposition: 08/01/17 23:23 Hospitalization ordered by Sajan Pratt for Observation. Preliminary diagnosis are Dysphagia, Intractable vomiting. - Bed requested for Telemetry/MedSurg (observation). - Status is Observation. ed1 - Condition is Stable. - Problem is new. - Symptoms are unchanged. UTI on Admission? No Signatures: Dispatcher [employer] EDMS Terra Romero, RN RN aj1 Rolanda Estrella, RN RN mw Omer Zuniga MD MD rn Riggs, Erika, BOAT ENGINES INSTALLER BOAT ENGINES INSTALLER ed1 Savannah Horn RN RN ak1 Deborah Osborne RN RN ea Corrections: (The following items were deleted from the chart) 08/01 23:47 23:23 Hospitalization Ordered by Sajan Pratt MD for Observation. Preliminary diagnosis is Dysphagia; Intractable vomiting. Bed requested for Telemetry/MedSurg (observation). Status is Observation. Condition is Stable. Problem is new. Symptoms are unchanged. UTI on Admission? No. rn 08/02 00:39 08/01 23:47 08/01/2017 23:23 Hospitalization Ordered by Sajan Pratt MD for ed1 Observation. Preliminary diagnosis is Dysphagia; Intractable vomiting. Bed requested for Telemetry/MedSurg (observation). Status is Observation. Condition is Stable. Problem is new. Symptoms are unchanged. UTI on Admission? No. mw
--- NOTE | 2017-08-01 23:24 | ER ---
Nurse's Notes [facility] Name: Pascual Chavez II Age: 57 yrs Sex: Male : 1960 Arrival Date: 08/01/2017 Time: 19:35 Bed 19 Private MD: Sajan Pratt Diagnosis: Dysphagia;Intractable vomiting Presentation: 08/01 20:04 Presenting complaint: Patient states: unable to swallow liquids or food since 1300. pt ak1 released from rehab facility for previous June 2017 stroke Sunday07/28/17. pt stated he was on thickened liquids prior to discharge. pt c/o coughing up green phlegm. 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 pt also has lung cancer "spot". Transition of care: patient was not received from another setting of care. Onset of symptoms was August 01, 2017. Initial Sepsis Screen: Does the patient meet any 2 criteria? No. Patient's initial sepsis screen is negative. Does the patient have a suspected source of infection? No. Patient's initial sepsis screen is negative. Care prior to arrival: None. 20:04 Method Of Arrival: Wheelchair ak1 20:04 Acuity: JACINDA 3 ak1 20:06 Note pt can swallow own secretions. ak1 Triage Assessment: 20:02 General: Appears in no apparent distress. Behavior is calm, cooperative. Pain: Denies ak1 pain. EENT: Throat is clear pt with left sided weakness from previous stroke in June 2017. . Neuro: Level of Consciousness is awake, alert, obeys commands, Oriented to person, place, time, situation, Assistant Program Director are weak on left Weakness Gait is unsteady, uses cane at home to ambulate . Speech is normal, Facial droop on left, deficits from previous stroke June 2017. Cardiovascular: No deficits noted. Respiratory: No deficits noted. GI: Reports intolerance of fluids, intolerance of food. : No signs and/or symptoms were reported regarding the genitourinary system. Derm: No signs and/or symptoms reported regarding the dermatologic system. Musculoskeletal: No signs and/or symptoms reported regarding the musculoskeletal system. Historical: - Allergies: 20:02 No Known Allergies; ak1 - Home Meds: 20:02 Lipitor 20 mg Oral tab 1 tab [Active]; citalopram 10 mg tab 1 tab once daily [Active]; ak1 - PMHx: 20:02 Hyperlipidemia; Depression; ak1 - PSHx: 20:02 multiple abd sx; chest tube; brain sx; Cholecystectomy; spleenectomy; left leg stint; ak1 - Immunization history:: Adult Immunizations up to date. - Social history:: Smoking status: Patient/guardian denies using tobacco, the patient reports quitting approximately 1 years ago. - Family history:: not pertinent. - Hospitalizations: : No recent hospitalization is reported. Screenin:06 Abuse screen: Denies threats or abuse. Denies injuries from another. Nutritional ak1 screening: No deficits noted. Tuberculosis screening: No symptoms or risk factors identified. Fall Risk None identified. Assessment: 20:30 General: Appears in no apparent distress. comfortable, Behavior is calm, cooperative, aj1 appropriate for age. Pain: Denies pain. Neuro: Level of Consciousness is awake, alert, obeys commands, Oriented to person, place, time, situation, Assistant Program Director are weak on left residual from previous stroke. Moves all extremities. Weakness in left residual from previous stroke. Speech is normal, Facial droop on left, residual from previous stroke. Reports difficulty swallowing that started with lunch and he has been vomiting since. Cardiovascular: Patient's skin is warm and dry. Respiratory: Airway is patent Respiratory effort is even, unlabored, Respiratory pattern is regular, symmetrical. GI: Abdomen is non-distended, Bowel sounds present X 4 quads. Abd is soft and non tender X 4 quads. Reports nausea, vomiting. : No signs and/or symptoms were reported regarding the genitourinary system. EENT: No signs and/or symptoms were reported regarding the EENT system. Derm: No signs and/or symptoms reported regarding the dermatologic system. Skin is pink, warm \\T\\ dry. normal. Musculoskeletal: No signs and/or symptoms reported regarding the musculoskeletal system. Circulation, motion, and sensation intact. 21:30 Reassessment: Patient appears in no apparent distress at this time. No changes from aj1 previously documented assessment. Patient and/or family updated on plan of care and expected duration. Pain level reassessed. Patient is alert, oriented x 3, equal unlabored respirations, skin warm/dry/pink. 23:07 Reassessment: Patient appears in no apparent distress at this time. No changes from ed1 previously documented assessment. Patient and/or family updated on plan of care and expected duration. Pain level reassessed. Patient is alert, oriented x 3, equal unlabored respirations, skin warm/dry/pink. Patient states symptoms have not improved. Vital Signs: 20:02 BP 118 / 88; Pulse 77; Resp 18; Temp 97.9(TE); Pulse Ox 95% on R/A; Weight 110.22 kg ak1 (R); Height 6 ft. 4 in. (193.04 cm) (R); Pain 0/10; 21:34 BP 133 / 90; Pulse 54; Resp 16; Pulse Ox 96% on R/A; dh3 23:07 BP 131 / 83; Pulse 61; Resp 17; Pulse Ox 96% on R/A; Pain 0/10; ed1 20:02 Body Mass Index 29.58 (110.22 kg, 193.04 cm) ak1 ED Course: 19:35 Patient arrived in ED. am2 19:36 Sajan Pratt MD is Private Physician. am2 20:02 Arm band placed on Patient placed in waiting room, Patient notified of wait time. ak1 20:06 Triage completed. ak1 20:06 Patient has correct armband on for positive identification. ak1 20:21 Omer Zuniga MD is Attending Physician. rn 20:24 Terra Romero RN is Primary Nurse. aj1 20:30 No provider procedures requiring assistance completed. Inserted saline lock: 20 gauge aj1 in right forearm, using aseptic technique. Blood collected. 20:43 Patient moved to radiology via wheelchair. ml 20:45 X-ray completed. Patient tolerated procedure well. ml 20:47 XRAY Chest Pa And Lat (2 Views) In Process Unspecified. EDMS 21:12 EKG done, by ED staff, reviewed by Omer Zuniga MD. dh3 22:25 Report given to Aiden Rodriguez RN. aj1 23:22 Sajan Pratt MD is Hospitalizing Provider. rn 08/02 00:38 Patient admitted, IV remains in place. intact, No redness/swelling at site. ed1 Administered Medications: 08/01 21:27 Drug: NS 0.9% 500 ml Route: IV; Rate: bolus; Site: right forearm; aj1 22:24 Follow up: IV Status: Completed infusion; IV Intake: 500ml aj1 21:27 Drug: Zofran 4 mg Route: IVP; Site: right forearm; aj1 22:24 Follow up: Response: No adverse reaction aj1 23:35 Drug: Glucagon 1 mg Route: IVP; Site: right antecubital; ea 08/02 00:38 Follow up: Response: No adverse reaction; No change in condition ed1 Intake: 08/01 22:24 IV: 500ml; Total: 500ml. aj1 Outcome: 23:23 Decision to Hospitalize by Provider. rn 08/02 00:37 Admitted to Tele accompanied by tech, via wheelchair, room 427, with chart, Report ed1 called to [facility] Condition: good Discharge instructions given to patient, family, Instructed on the need for admit, Demonstrated understanding of instructions. 00:39 Patient left the ED. ed1 Signatures: Dispatcher [employer] EDMS Terra Romero RN RN Kalani Benson Roman, MD MD rn Riggs, Erika, MEDICAL RECEPTIONIST BILLER MEDICAL RECEPTIONIST BILLER ed1 Savannah Horn RN RN ak1 Moreno, Amanda amPurvi Zhang 3 Deborah Osborne RN RN ea
[2017-08-01] MEDS ORDERED: GLUCAGON 1 MG/VIAL ONE (23:28)
[2017-08-02 01:09] VITALS: BMI 29.4
[2017-08-02] MEDS: ONDANSETRON 4 MG/2 ML VIAL IV PRN (02:07)
[2017-08-02] MEDS: D5.45NS W/KCL 20MEQ 1,000 ML IV SCH ×3 (02:07→22:26)
--- NOTE | 2017-08-02 06:04 | EKG ---
Test Date: 2017-08-01 Test Time: 21:10:01 [employer] Operator: KASSANDRA MEASUREMENT RESULTS: Intervals: Rate: 60 ME: 158 QRSD: 110 QT: 452 QTc: 452 [place]: P: -16 ME: 158 QRS: 24 T: 48 INTERPRETIVE STATEMENTS: Normal sinus rhythm Incomplete right bundle branch block Abnormal ECG Compared to ECG 01/25/2017 09:51:12 Incomplete right bundle-branch block now present Electronically Signed On 08-02-17 06:03:57 CDT by Juan Carlos Bell
[2017-08-02 06:20] LABS: Absolute Lymphocytes (CBC) 4.1 K/uL (0.7-4.9); Absolute Monocytes 1.2 K/uL (0.1-1.3); Absolute Neutrophil 4.2 K/uL (1.8-8.0); Basophils % 0.4 % (0-1.3); Eosinophils % 2.5 % (0-4.4); Hematocrit 50.1 % (39.6-49.0); Lymphocytes % 41.8 % (15.3-44.8); MCH 32.8 pg (27.0-35.0); MCV 99.8 fL (80-100); MPV 10.2 fL (7.6-11.3); Monocytes % 12.4 % (3.3-12.3); RBC Red Blood Cell Count 5.02 M/uL (4.33-5.43)
[2017-08-02 06:24] LABS: BUN Blood Urea Nitrogen 10 mg/dL (6-20); Bicarbonate 27 mEq/L (21-31); Glucose Level 101 mg/dL (65-120); Potassium 3.9 mEq/L (3.6-5.0); Sodium Level 139 mEq/L (135-145)
--- NOTE | 2017-08-02 07:20 | RAD REPORT ---
EXAM DESCRIPTION: RAD - Chest Pa And Lat (2 Views) - 08/01/2017 8:49 pm CLINICAL HISTORY: Difficulty swallowing, cough COMPARISON: Chest film January 2017 and August 2011 TECHNIQUE: PA and lateral views of the chest were obtained. FINDINGS: The lungs are normal volume. No peripheral mass or consolidation. Interstitial markings ar e prominent as a baseline potentially masking earliest stages of interstitial edema or infiltrate. No significant failure or volume overload seen. Heart size is normal and central vasculature is withi n normal limits. No pneumothorax or acute pleural effusion. Left costophrenic angle blunting is prob ably pleural scarring rather than effusion. This is a stable presentation. No acute bone findings see n. The expansile appearance to the right first rib is probably a benign bone cyst or similar benign p rocess. Pattern dates back to at least 2011 with no evidence for interval change. No aortic abnormali ty. IMPRESSION: No mass, consolidation or significant failure finding. Lung markings are prominent but not substantially different. This could mask earliest stages of inter stitial edema or infiltrate.
--- NOTE | 2017-08-02 16:03 | RAD REPORT ---
EXAM DESCRIPTION: RAD - Barium Swallow Modified - 08/02/2017 3:57 pm CLINICAL HISTORY: Dysphagia. COMPARISON: None. TECHNIQUE: The patient was given liquid, semi-solid and solid forms of barium. Lateral view fluorosc opic imaging was performed in conjunction with speech pathology service. FINDINGS: Vomiting with all PO; laryngeal penetration cleared with thin; esophagus significant for s tasis with all consistencies, vomiting noted with all consistencies and closely correlated to esophag eal stasis.
--- NOTE | 2017-08-02 22:10 | CON ---
Reason For Consultation: Dysphagia. History Of Present Illness: Mr. Chavez is a 57-year-old gentleman, who recently had a CVA. 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 However, approximately 2 weeks ago, patient slowly developed a d ifficulty with swallowing. Difficulty with swallowing is not at the initiation, however after he swa llows the food gets stuck. According to him, many years ago, he had this problem and "I was able to overcome it." He denies any hematemesis, melena, or hematochezia. However, he states that the diffi culty with swallowing is both for solids and liquids, predominantly for solids. He denies any associ ated odynophagia. No history of hematemesis, melena, or hematochezia. Past Medical History: Hypertension, CVA. Past Surgical History: Not related to above. Family History: Denies any gastrointestinal malignancies in the family. Social History: No active alcohol or tobacco at this time. Psychiatric History: None. Allergy: Reviewed in the chart. Medications: Reviewed in the chart. Review of Systems: General: No fever or chills. However, he has lost some weight. Appetite is poor due to difficulty. GI: As elaborated above. Hepatologic: Denies any history of jaundice, hepatitis, pleuritis. Muscu loskeletal: Left-sided paralysis. Neurological: As above. Neuropsychiatric: None. Neuroendocrine: None. Pulmonary: No shortness of breath, cough, or expectoration. Cardiac: No pa lpitation or heart murmur. No orthopnea or dyspnea. Physical Examination: General: Young male, appears older than stated age; however, no other acute distress noted. Vital Signs: Hemodynamic and respiratory profile within normal range. HEENT: Atraumatic, normocephalic. Oropharyngeal is clear. The patient is heavily bearded. Neck: Supple. No lymphadenopathy. Trachea central in position. Chest: Clear to auscultation and percussion. Cardiac: Normal S1, S2. No S3, no S4. Abdomen: Soft, nontender, nondistended. Excellent bowel sounds in all quadrants. No hepatomegaly. No splenomegaly. No ascites. No succussion splash. Extremities: Upper and lower extremities; normal on the right side, however on the left side selecti ve wasting noted. Other than paresis, no gross deformity. Neurologic: Alert and oriented x3. Memory, mentation, judgment appears to be intact. Left-sided pa resis noted. Dermatologic: Exposed surface areas appears to be fine. Diagnostic Data: Reviewed and analyzed. Barium swallow, still results pending. Hemoglobin and skylar tocrit 16 and 50 respectively. Impression, Plan, And Recommendation: Mr. Chavez is a 57-year-old gentleman with dysphagia. Malik maru, from historical viewpoint, this does not appear to be oropharyngeal dysphagia. I will check his barium swallow. However, patient needs a specific diagnosis in this case. Ulcerative esophagitis a nd esophageal stenosis due to other causes including neoplasia has to be considered. I will set him up for an EGD. I have had a discussion with the patient regarding the indications, contraindications, possible compl ications, alternatives as above, he has good understanding, including risk of anesthesia including ra re fatalities; he is agreeable. For the time being, proton pump inhibitor will be recommended in IV route. I have addressed all of h is questions. IRVIN/ADI Voice ID: [id number] Report ID: [id number]
--- NOTE | 2017-08-03 01:14 | PN ---
Date of Progress Note: 08/02/2017 Subjective: The patient states he is still having trouble swallowing and he was tried on ice chips w ith minimal results. He underwent a study and consultation was obtained with GI. The patient was sc heduled for eye surgery under his general anesthetic on Sunday for a carcinoma of the retina. Lance villarreal I discussed this with an cabinet maker and Oncology and felt that unless there was a dramatic im provement, it is unlikely, he should undergo the procedure. A final decision will be made in a.m. de pending on his situation and progress. HR/MODL Voice ID: [id number] Report ID: [id number]
--- NOTE | 2017-08-03 01:14 | HP ---
Date of Admission: 08/01/2017 Entrance Complaint: Vomiting, difficulty swallowing. History Of Present Illness: The patient presented to the emergency room with the above outlined symp toms. He recently had a significant stroke and had been in rehab, in which he said he digested the f ood which was specially prepared for him without a problem. He went home a couple days ago and did o [place] until he started persistent vomiting and presented to the emergency room. Past History: The patient has a long history of peripheral vascular disease, ulcerations of the legs which had difficulty healing, coronary artery disease, central nervous system disease. Family History: History of CAD, hypertension, diabetes. Social History: The patient does smoke and has some alcohol intake. Physical Examination: General: The patient is an overweight, middle-aged male, in no obvious discomfort. Vital Signs: Stable vital signs. Head and Neck: Normocephalic. Pupils are equal, round, reactive to light and accommodation. Fundi neg ative. Trachea midline. Thyroid not palpable. ENT: Negative. Chest: Clear to P and A. Cardiovascular: PMI in midclavicular line. Heart sounds normal. Peripheral pulses are present and e qual bilaterally. Abdomen: No organomegaly. Bowel sounds present. Extremities: Decreased motion in extremities on the left. Uses a cane to mobilize. RECTAL: Deferred. Impression: Dysphagia, probable secondary to recent cerebrovascular accident; hypertension, controll ed; peripheral vascular disease. Plan: The patient will be admitted, kept n.p.o., but swallow study will be done and seen by David morillo. GI consultation may be necessitated depending on the results of this study. He was maintaine d on a symptomatic treatment. HR/MODL Voice ID: [id number]
[2017-08-03] MEDS: D5.45NS W/KCL 20MEQ 1,000 ML IV SCH ×2 (10:01→17:07)
[2017-08-03] MEDS ORDERED: Ringers Lactate 1,000 ML IV ONE (12:10)
[2017-08-03] MEDS ORDERED: ONDANSETRON 4 MG/2 ML VIAL ONE (12:37)
[2017-08-03] MEDS: ONDANSETRON 4 MG/2 ML VIAL IV PRN (12:42)
[2017-08-03] MEDS ORDERED: PROPOFOL 200 MG/20 ML VIAL IV ONE ×2 (12:44→12:54)
[2017-08-03] MEDS ORDERED: LIDOCAINE 1% MPF 5 ML VIAL ONE (12:44)
[2017-08-03] MEDS ORDERED: ESMOLOL HCL 10 ML IV ONE (12:54)
--- NOTE | 2017-08-03 13:17 | P.PN ---
Date of Service: 08/03/17 S: Patient seen and examined at bedside with RN. Case discussed with GI. Currently patient has no complaints to offer is awaiting his EGD this morning. PE: Vitals: Temp Pulse Resp BP Pulse Ox 98.0 F 72 16 122/76 95 08/03/17 11:55 08/03/17 11:55 08/03/17 11:55 08/03/17 11:55 08/03/17 11:42 General: Young male, appears older than stated age; however, no other acute distress noted. Vital Signs: Hemodynamic and respiratory profile within normal range. HEENT: Atraumatic, normocephalic. Oropharyngeal is clear. The patient is heavily bearded. Neck: Supple. No lymphadenopathy. Trachea central in position. Chest: Clear to auscultation and percussion. Cardiac: Normal S1, S2. No S3, no S4. Abdomen: Soft, nontender, nondistended. Excellent bowel sounds in all quadrants. No hepatomegaly. No splenomegaly. No ascites. No succussion splash. Extremities: Upper and lower extremities; normal on the right side, however on the left side selective wasting noted. Other than paresis, no gross deformity. Neurologic: Alert and oriented x3. Memory, mentation, judgment appears to be intact. Left-sided paresis noted. Dermatologic: Exposed surface areas appears to be fine. Lab: Reviewed Assessment/Plan: 1. Dysphagia: GI consulted. Awaiting EGD today. Speech on board. NPO for now 2. H/O HTN 3. H/O CVA Dispo: Awaiting clinical improvement
[2017-08-03 13:58] VITALS: O2SAT 97
--- NOTE | 2017-08-03 14:32 | RAD REPORT ---
EXAM DESCRIPTION: CT - Chest For Pe Angio - 08/03/2017 1:49 pm CLINICAL HISTORY: Chest pain COMPARISON: None. TECHNIQUE: Dynamically enhanced axial 3 mm thick images of the chest were obtained during administra tion of <100> mL Isovue 370 IV contrast. Coronal and oblique reconstruction images were generated and reviewed. Exam utilizes a protocol for optimal evaluation of pulmonary arterial tree. All CT scans are performed using dose optimization technique as appropriate and may include automated exposure control or mA/KV adjustment according to patient size. FINDINGS: A pulmonary embolus is not seen. A thoracic aortic aneurysm is not noted. A pleural effusion is not seen. A pericardial effusion is not seen. A lung consolidation is not present. Increased density is visualized within the proximal to mid esophagus. Pneumomediastinum surrounds a p ortion of the proximal common all of the mid and distal esophagus. Pneumomediastinum is present adjac ent to the aortic arch and descending aorta as well. The air tracks into the abdomen. Retroperitoneal and peritoneal air is seen. An abscess is not visualized. IMPRESSION: Negative for a pulmonary embolism. Pneumoperitoneum, retroperitoneal and peritoneal air. The patient has a perforation of the esophagus. Increased density within the esophagus may retained food The exam was discussed with Dr. Bravo At 2:20 p.m. July 28, 2017
[2017-08-03] MEDS ORDERED: FLUCONAZOLE 400 MG IVPB 400 MG/200 ML BAG IV SCH (16:00)
[2017-08-03] MEDS: PIPER/TAZO/NS 3.375gm 3.375 GM/100 ML BAG IVPB SCH (17:45)
[2017-08-03] MEDS: PANTOPRAZOLE INJ 80 MG in NA CHLORIDE 0.9% 250 ML IV SCH (17:45)
--- NOTE | 2017-08-03 17:52 | P.DS ---
Admission Date: 08/03/17 Discharge Date: 08/03/17 Disposition: TRANSFER TO [facility] Discharge Condition: GOOD Reason for Admission: Dysphagia Consultations: GI Procedures: EGD - Problems (1) Pneumoperitoneum Current Visit: Yes Status: Acute (2) Ida-Carbajal tear Current Visit: Yes Status: Acute (3) Dysphagia Onset Date: 08/02/17 Current Visit: Yes Status: Acute Qualifiers: Dysphagia type: esophageal phase Qualified Code(s): R13.10 - Dysphagia, unspecified (4) CVA (cerebral vascular accident) Current Visit: Yes Status: Chronic Qualifiers: CVA mechanism: other Qualified Code(s): I63.8 - Other cerebral infarction (5) CHF (congestive heart failure) Onset Date: 01/25/17 Current Visit: No Status: Chronic Qualifiers: Heart failure type: unspecified Heart failure chronicity: chronic Qualified Code(s): I50.9 - Heart failure, unspecified (6) Smoker Current Visit: No Status: Chronic Brief History of Present Illness: This is a 57-year-old male with significant past medical history of CVA of 1 month ago, smoker, hypertension, CHF, who presented to the ED complaining of having some dysphagia was admitted for evaluation of dysphagia. Hospital Course: Overall during the hospital stay patient remained stable Patient was initially admitted to the hospital for dysphagia. Patient had GI consulted on the case. Patient had EGD done here in the hospital which was consistent of 10 cm food bolus between the proximal to distal esophagus. This was removed during the EGD. Patient also had some deep ulcers consistent with esophagitis along with Ida-Carbajal tear. CT angio was done here in the hospital to evaluate for pneumoperitoneum. CT angio was positive for pneumo peritoneum between the proximal and distal esophagus retroperitoneal air was also seen. At that time, a decision was made to transfer the patient to [facility] for a cardiothoracic surgery. Dr. Quiñonez from cardiothoracic surgery was consulted and accepted the patient and patient was then transferred to [facility] for further care. Patient was started on IV Zosyn, Diflucan, vanc, Protonix. Vital Signs/Physical Exam: Temp Pulse Resp BP Pulse Ox 98.4 F 68 18 132/76 96 08/03/17 14:20 08/03/17 14:20 08/03/17 14:20 08/03/17 14:20 08/03/17 14:20 General: Alert, In no apparent distress, Oriented x3 HEENT: Atraumatic, PERRLA, EOMI Neck: Supple, JVD not distended Respiratory: Clear to auscultation bilaterally, Normal air movement Cardiovascular: Regular rate/rhythm, Normal S1 S2 Gastrointestinal: Normal bowel sounds, No tenderness Musculoskeletal: No tenderness Integumentary: No rashes Neurological: Normal speech, Normal tone, Normal affect Lymphatics: No axilla or inguinal lymphadenopathy Laboratory Data at Discharge: WBC 9.7 K/uL (4.3-10.9) 08/02/17 05:22 Hgb 16.5 g/dL (13.6-17.9) 08/02/17 05:22 Hct 50.1 % (39.6-49.0) H 08/02/17 05:22 Plt Count 261 K/uL (152-406) 08/02/17 05:22 Sodium 139 mEq/L (135-145) 08/02/17 05:22 Potassium 3.9 mEq/L (3.6-5.0) 08/02/17 05:22 BUN 10 mg/dL (6-20) 08/02/17 05:22 Creatinine 0.71 mg/dL (0.61-1.24) 08/02/17 05:22 Glucose 101 mg/dL (65-120) 08/02/17 05:22 Home Medications: Atorvastatin Calcium [Lipitor] 1 tab PO BEDTIME 01/25/17 Citalopram [Celexa*] 10 mg PO DAILY 08/02/17
[2017-08-03] MEDS ORDERED: VANCOMYCIN 2 GM in NA CHLORIDE 0.9% 500 ML IVPB SCH (18:00)
--- NOTE | 2017-08-03 19:54 | PN ---
Subjective: The patient underwent a stat CT of the chest, and I personally spoke to Dr. Emery of Radiology. There seems to be a mediastinal air as well as small hemoperitoneum indicating a distal e sophageal perforation. He also sees some amount of food debris in the esophagus. I immediately spok en to Dr. Pickard regarding the plan of care. The patient would need [facility]acic [facility]. Probably, they monitor him conservative ly, but in case the emergent surgery is needed, he needs to be [facility]. Also I called Liz Pratt and discussed with him the case and informed him about his patient. We will keep him n.p.o .. Continue IV antibiotics. Transfer [facility] with cardiothoracic surgery backup . Most likely cause of perforation is related to the endoscopy with foreign body removal and manipul ation in combination with ulcers of the esophagus and ischemia related to prolonged stasis of impacte d food in the distal esophagus. US/MODL Voice ID: [id number] Report ID: [id number]
--- NOTE | 2017-08-03 19:57 | PN ---
Date of Progress Note: 08/03/2017 A 57-year-old male. Problem List: Perforation of esophagus related to the procedure and/or ischemia and/or foreign body, or all of the above combined. Subjective: Mr. Chavez is post EGD with foreign body removal by Dr. Bravo. At this time, the patient is not complaining of anything; indeed, he is feeling a relief. Denies any chest pain, abdom inal pain, shortness of breath, cough, or expectoration. Physical Examination: General: He is absolutely in no distress whatsoever. Vital signs: Respiratory rate, heart rate, and blood pressure within stable range. HEENT: Atraumatic, normocephalic. No subcutaneous emphysema in the neck or in the chest. Chest: Clear to auscultation percussion. Cardiovascular: Normal S1, S2. No S3, no S4. Abdomen: Soft, nontender, nondistended. Excellent bowel sounds. Neurologic: Alert oriented x3. In the baseline, left-sided paresis paralysis. Impression: CT scan shows pneumomediastinum. Plan: Because of the perforation, he will probably need IV antibiotic. There is a possibility of elena rgery however, which is very rare and only in case of complications or if the perforation does not he al. However standard of care will require this patient to be transferred to a facility, where the ca rdiothoracic surgeon and cardiothoracic surgery is available. Plan has been made already by Dr. Vance red. We will follow this. In the meanwhile, continue on antibiotic, IV fluid. Keep the patient on n.p.o. I have had a long discussion with the patient and his family members were in the room regard ing this. They have clear understanding and all their questions have been answered to their satisfaction. They seemed to be happy with the care they are receiving. IRVIN/ADI Voice ID: [id number] Report ID: [id number]
--- NOTE | 2017-08-03 20:39 | RAD REPORT ---
EXAM DESCRIPTION: RAD - Chest Single View - 08/03/2017 8:18 pm CLINICAL HISTORY: Device placement PICC line placement COMPARISON: August 01 FINDINGS: A PICC line has been inserted with its tip in the superior vena cava. The patient's known pneumomediastinum is not well visualized on this exam. The lungs appear clear. IMPRESSION: PICC line with its tip in the superior vena cava
[2017-08-04] MEDS: PIPER/TAZO/NS 3.375gm 3.375 GM/100 ML BAG IVPB SCH (00:34)
--- NOTE | 2017-08-04 01:25 | OP ---
Surgeon: Joel Bravo MD Procedure Performed: Esophagogastroduodenoscopy. Indication For Procedure: Persistent nausea, vomiting, inability to swallow, and abnormal radiology. For full details, please refer to Dr. Bose's consultation. Plan For Anesthesia: Monitored anesthesia care. Complexity: High due to patient's comorbidities and nature of the procedure. Technique: After obtaining informed consent from the patient and explaining risks and complications, which include, but are not limited to bleeding, infection, perforation, and anesthesia complication. The patient was placed in the left lateral position and sedation was given. From then on, the scop e was advanced into the mouth and into the upper esophagus. Immediately, there was a significant renata unt of food debris that was noted. This was suctioned from the proximal esophagus, however, from the mid-esophagus as far as could be seen, there appeared to be a large impacted food bolus foreign body , consistent with meat, surrounded by ulcerations in the esophagus. The mucosa surrounding the forei gn body was quite friable. I attempted to remove the foreign body with Quinonez Net and then a snare; suman polanco, likely due to the prolonged stasis and due to the number of days the patient has had this impa ction, it appeared to be breaking apart and not coming out as a single piece; therefore, we slowly ke pt removing piece by piece while being careful not to risk aspiration. After clearing the middle eso phagus, there was still significant chunk of bolus impacted in the distal portion along with severe e sophagitis. This was again cleared piecemeal with the help of snare as well as Quinonez Net. After shanthi ring all the foreign body particles and impaction, several deep ulcers were noted in the distal esoph sulma. The scope was briefly advanced to the stomach to ensure there was no more obstruction. Subseq uently, the scope was withdrawn and procedure was terminated. Findings: Long segment food bolus impaction, severe ulceration and tear in the esophagus, esophageal stenosis, possible hiatal hernia. Complications: We will need to rule out perforation due to tear. The possibilities of perforation c ould be related to the nature of the procedure and ischemia of the distal esophageal mucosa caused by prolonged impaction of the food bolus. Plan: We will get a stat CT of the chest to evaluate. We will put the patient on IV Zosyn q.6 h. K eep the patient n.p.o. Further management based on the CT scan results. I did speak to the patient a fterwards, he had denied any symptoms and actually felt better. Also communicated the plan with Dr. Pickard. /ADI Voice ID: [id number] Report ID: [id number]
[2017-08-04 01:43] VITALS: BP 104/64
[2017-08-04 02:02] VITALS: TEMP 99.1
[2017-08-04] MEDS: PANTOPRAZOLE INJ 80 MG in NA CHLORIDE 0.9% 250 ML IV SCH (02:02)
--- NOTE | 2017-09-30 19:24 | DS ---
Date of Discharge: 08/04/2017 Hospital Course: The patient admitted to the hospital on 08/02/2017. He presented to the emergency room with increasing dysphagia. The patient is approximately 2 weeks post CVA, which left him with s ome left upper extremity weakness and decreased motion and some weakness in lower legs as well; howev er, he was mobile. He stated that the swallowing became noticeable couple of weeks ago, increasingly symptomatic, getting dehydrated and he was admitted for further care. At that time, a consultation was obtained by Gastroenterology who felt since a foreign body was noted as a possibility, he should undergo an EGD, at which time a marked amount of material was removed. However, post procedure, he d eveloped a perforation of the esophagus, which was confirmed on a CT scan, due to the unavailability of cardiovascular surgeon the possibility this may be in fact an issue. He was transferred to [facility] in [place] for further care and observation. His vital signs did remain stable throughout his hospital stay. He had been placed on IV fluids prior to the procedure and was getting Protonix IV as well. The alma ent was transferred on 08/04. Final Diagnosis: Esophageal perforation secondary to post EGD procedure, post cerebrovascular accide nt, recent left-sided paresis, foreign body to esophagus, hypertension controlled. HR/MODL Voice ID: [id number] Report ID: [id number]
== END 2017-08-04 02:00 | disposition short-term general hospital (02) | DRG 393 ==
LOC: ER 19:33 → ERHOLD 23:25 → 4TH 23:58 → OBSVTOIN 08-03 14:34 → 3RD-ICU 08-03 16:48
PROVIDERS: ADMIT Family Medicine; ATTEND Family Medicine
PROC: 0DC38ZZ Extirpation of Matter from Lower Esophagus, Via Natural or Artificial Opening Endoscopic (ICD-10-PCS; 2017-08-03)
PROC: 02HV33Z Insertion of Infusion Device into Superior Vena Cava, Percutaneous Approach (ICD-10-PCS; 2017-08-03)
PROC: 0DC28ZZ Extirpation of Matter from Middle Esophagus, Via Natural or Artificial Opening Endoscopic (ICD-10-PCS; principal; 2017-08-03 12:15)
DX: T18.128A Food in esophagus causing other injury, initial encounter (principal); K66.1 Hemoperitoneum; K22.6 Gastro-esophageal laceration-hemorrhage syndrome; I69.354 Hemiplegia and hemiparesis following cerebral infarction affecting left non-dominant side; K22.10 Ulcer of esophagus without bleeding; I69.391 Dysphagia following cerebral infarction; R13.10 Dysphagia, unspecified; C69.20 Malignant neoplasm of unspecified retina; K20.8 Other esophagitis; K44.9 Diaphragmatic hernia without obstruction or gangrene; I73.9 Peripheral vascular disease, unspecified; I25.10 Atherosclerotic heart disease of native coronary artery without angina pectoris; J98.2 Interstitial emphysema
CPT/HCPCS: 36415; 71045; 71046; 71275; 74230; 80048; 85025; 87070; 87077; 87186; 87205; 93005; 99285; C9113; J1450; J1610; J2405; J2543

== ENCOUNTER 2024-12-30 10:28 | Observation (INO) | payer OTHER ==
[2024-12-30] MEDS ORDERED: VITAMIN K (ADULT) 10 MG/ML ONE (11:15)
[2024-12-30 12:25] LABS: Absolute Lymphocytes (CBC) 2.2 K/uL (0.7-4.9); Hematocrit 49.7 % (39.6-49.0); Hemoglobin 16.3 g/dL (13.6-17.9); MCH 31.4 pg (27.0-35.0); MCHC 32.8 g/dL (32.0-36.0); MCV 95.5 fL (80-100); MPV 9.8 fL (7.6-11.3); Nucleated RBC Absolute Count 0.0 (0-0); Nucleated Red Blood Cells % 0.1 % (0-0); RBC Red Blood Cell Count 5.20 M/uL (4.33-5.43); White Blood Count 10.50 thou/uL (4.3-10.9)
[2024-12-30] MEDS ORDERED: ONDANSETRON 4 MG/2 ML VIAL ONE (12:38)
[2024-12-30 12:47] LABS: ALT/SGPT 44.0 U/L (16-61); AST/SGOT 41.0 U/L (15-37); Albumin 3.0 g/dL (3.4-5.0); Albumin/Globulin Ratio 0.7 (1.1-1.8); Alkaline Phosphatase 160.0 U/L (45-117); Anion Gap 9.5 mEq/L (5.0-15.0); BUN Blood Urea Nitrogen 8.0 mg/dL (7-18); Globulin 4.6 g/dL (2.3-3.5); Glucose Level 106.0 mg/dL (74-106); Potassium 3.5 mEq/L (3.5-5.1)
[2024-12-30 12:53] LABS: PT Prothrombin Time 131.6 SECONDS (10-13.0); Protime INR 12.54
--- NOTE | 2024-12-30 13:04 | ER ---
Nurse's Notes [facility] Name: Pascual Chavez II Age: 64 yrs Sex: Male : 1960 Arrival Date: 12/30/2024 Time: 10:28 Bed 19 Private MD: Diagnosis: Supratherapeutic INR Presentation: 12/30 10:44 Chief complaint: Patient states: Sent by Dr Pratt for elevated INR. Had lab work me1 yesterday and it was high, held his dose of Jantoven last night and rechecked and INR was higher today. Coronavirus screen: Vaccine status: Patient reports being unvaccinated. Ebola Screen: No symptoms or risks identified at this time. Initial Sepsis Screen: Does the patient meet any 2 criteria? HR > 90 bpm. Does the patient have a suspected source of infection? No. Patient's initial sepsis screen is negative. Risk Assessment: Do you want to hurt yourself or someone else? Patient reports no desire to harm self or others. Onset of symptoms is unknown. 10:44 Method Of Arrival: Ambulatory me1 10:44 Acuity: JACINDA 3 me1 Historical: - Allergies: 10:46 Amoxicillin; me1 - PMHx: 10:46 Depression; Hyperlipidemia; Cerebrovascular accident; Transient cerebral ischemia; left me1 sided weakness; - Immunization history:: Adult Immunizations up to date. - Infectious Disease History:: Denies. - Social history:: Smoking status: Patient/guardian denies using tobacco, but has a distant history of tobacco abuse. Screenin:52 [facility] ED Fall Risk Assessment (Adult) History of falling in the last 3 months, af3 including since admission No falls in past 3 months (0 pts) Confusion or Disorientation No (0 pts) Intoxicated or Sedated No (0 pts) Impaired Gait No (0 pts) Mobility Assist Device Used No (0 pt) Altered Elimination No (0 pt) Score/Fall Risk Level 0 - 2 = Low Risk Oriented to surroundings, Maintained a safe environment, Educated pt \T\ family on fall prevention, incl call for assistance when getting out of bed. 10:52 Abuse screen: Denies threats or abuse. Denies injuries from another. af3 10:52 Nutritional screening: No deficits noted. Tuberculosis screening: No symptoms or risk af3 factors identified. Assessment: 10:52 General: Appears in no apparent distress. comfortable, well groomed, well developed, af3 Behavior is calm, cooperative, appropriate for age. Pain: Denies pain. Neuro: Level of Consciousness is awake, alert, obeys commands, Oriented to person, place, time, situation, Appropriate for age. Cardiovascular: Patient's skin is warm and dry. Respiratory: Airway is patent Respiratory effort is even, unlabored, Respiratory pattern is regular, symmetrical. 11:52 Reassessment: Patient appears in no apparent distress at this time. No changes from af3 previously documented assessment. Patient and/or family updated on plan of care and expected duration. Pain level reassessed. Patient is alert, oriented x 3, equal unlabored respirations, skin warm/dry/pink. 12:45 Reassessment: Patient appears in no apparent distress at this time. No changes from af3 previously documented assessment. Patient and/or family updated on plan of care and expected duration. Pain level reassessed. Patient is alert, oriented x 3, equal unlabored respirations, skin warm/dry/pink. 13:45 Reassessment: Patient appears in no apparent distress at this time. No changes from af3 previously documented assessment. Patient and/or family updated on plan of care and expected duration. Pain level reassessed. 14:32 Reassessment: Patient appears in no apparent distress at this time. No changes from af3 previously documented assessment. Patient and/or family updated on plan of care and expected duration. Pain level reassessed. Vital Signs: 10:44 BP 146 / 88; Pulse 97; Resp 20; Temp 98; Pulse Ox 96% ; Weight 136.08 kg; Height 6 ft. me1 4 in. ; Pain 0/10; 10:53 BP 146 / 91; Pulse 81; Resp 18; Pulse Ox 96% on R/A; Weight 136.08 kg; Height 6 ft. 4 af3 in. ; 12:45 BP 130 / 84; Pulse 90; Resp 18; Pulse Ox 93% on R/A; af3 14:33 BP 140 / 69; Pulse 74; Resp 18; Pulse Ox 93% on R/A; af3 10:53 Body Mass Index 36.52 (136.08 kg, 193.04 cm) af3 10:44 Pain Scale: Adult me1 ED Course: 10:32 Patient arrived in ED. al6 10:35 [facility]C [facility] kb 10:35 Deepali Pickard MD is Attending Physician. kb 10:46 Triage completed. me1 10:46 Arm band placed on Patient placed in an exam room. me1 10:49 Anna Lee, RN is Primary Nurse. af3 10:52 Patient has correct armband on for positive identification. Bed in low position. Call af3 light in reach. Provided Education on: call light use . 10:52 No provider procedures requiring assistance completed. af3 11:00 Inserted saline lock: 20 gauge in right wrist, using aseptic technique. Blood af3 collected. Flushed with 10 mL NS. 11:12 CMP Sent. af3 11:12 CBC with Diff Sent. af3 11:12 PT-INR Sent. af3 13:03 José Miguel Guidry MD is Hospitalizing Provider. kb 15:42 Patient admitted, IV remains in place. af3 Administered Medications: 11:30 Drug: Phytonadione IM 10 mg IM once Route: IM; Site: right deltoid; af3 12:00 Follow up: Response: No adverse reaction af3 12:44 Drug: Ondansetron IVP 4 mg IVP once; over 2 minutes Route: IVP; Site: right wrist; af3 13:11 Follow up: Response: No adverse reaction; Nausea is decreased af3 Medication: 15:41 VIS not applicable for this client. af3 Outcome: 13:03 Decision to Hospitalize by Provider. kb 15:41 Admitted to Med/surg accompanied by tech, via wheelchair, room 204, with chart, Report af3 called to [place]. YOKO 15:41 Condition: stable 15:41 Instructed on the need for admit, Demonstrated understanding of instructions, 15:42 Patient left the ED. af3 Signatures: Asha Mohr FNP-C PHARMACIST IN CHARGE-CkRita Hazel RN RN me1 Anna Lee, YOKO RN af3 Ana Mccracken
--- NOTE | 2024-12-30 13:04 | EDPHYS ---
Physician Documentation [facility] Name: Pascual Chavez II Age: 64 yrs Sex: Male : 1960 Arrival Date: 12/30/2024 Time: 10:28 Bed 19 Private MD: ED Physician Deepali Pickard HPI: 12/30 11:11 This 64 yrs old Male presents to ER via Ambulatory with complaints of Abnormal Lab kb Results. 11:11 Pt is a 64 year old male who presents for elevated INR. States he takes Jantoven. kb States his INR was low a couple of months ago so they increased his dose from 5mg to 6mg, but he only had 5mg tablets so he has been taking 7.5mg. Denies any bleeding or other complaints. Historical: - Allergies: 10:46 Amoxicillin; me1 - PMHx: 10:46 Depression; Hyperlipidemia; Cerebrovascular accident; Transient cerebral ischemia; left me1 sided weakness; - Immunization history:: Adult Immunizations up to date. - Infectious Disease History:: Denies. - Social history:: Smoking status: Patient/guardian denies using tobacco, but has a distant history of tobacco abuse. ROS: 11:10 Constitutional: As per HPI kb Exam: 11:10 Constitutional: This is a well developed, well nourished patient who is awake, alert, kb and in no acute distress. Head/Face: Normocephalic, atraumatic. ENT: Moist Mucous membranes Cardiovascular: Regular rate Respiratory: Respirations even and unlabored. No increased work of breathing. Talking in full sentences Skin: Warm, dry with normal turgor. Normal color. MS/ Extremity: Pulses equal, no cyanosis. Neurovascular intact. Full, normal range of motion. Neuro: Awake and alert, GCS 15, oriented to person, place, time, and situation. Vital Signs: 10:44 BP 146 / 88; Pulse 97; Resp 20; Temp 98; Pulse Ox 96% ; Weight 136.08 kg; Height 6 ft. me1 4 in. ; Pain 0/10; 10:53 BP 146 / 91; Pulse 81; Resp 18; Pulse Ox 96% on R/A; Weight 136.08 kg; Height 6 ft. 4 af3 in. ; 12:45 BP 130 / 84; Pulse 90; Resp 18; Pulse Ox 93% on R/A; af3 14:33 BP 140 / 69; Pulse 74; Resp 18; Pulse Ox 93% on R/A; af3 10:53 Body Mass Index 36.52 (136.08 kg, 193.04 cm) af3 10:44 Pain Scale: Adult me1 MDM: 10:35 Medical Screening Exam initiated kb 11:10 Data reviewed: vital signs, nurses notes. Consideration of Admission/Observation kb Patient was admitted/placed on observation. Escalation of care including admission/observation considered. Management of patient was discussed with the following: Primary Care Provider: Dr Pratt states pt's INR was 9 yesterday, they had him hold a dose and today it was 14 so he recommended he come to the ER. Recommends admission until INR controlled. . Historians other than the Patient: Family Member: family. External Records Reviewed: Outpatient labs: INR obtained this morning was 14.05. 13:02 Differential diagnosis: Supratherapeutic INR, bleeding, warfarin toxicity. Management kb of patient was discussed with the following: Hospitalist: Hospitalist team, pt accepted for admission by Dr Guidry. Counseling: I had a detailed discussion with the patient and/or guardian regarding the historical points, exam findings, and any diagnostic results supporting the discharge/admit diagnosis, lab results, the need for further work-up and treatment in the hospital. 12/30 10:50 Order name: CBC with Diff; Complete Time: 12:41 kb 12/30 10:50 Order name: CMP; Complete Time: 12:50 kb 12/30 10:50 Order name: PT-INR; Complete Time: 12:56 kb 12/30 13:02 Order name: Type And Screen kb 12/30 13:04 Order name: Bb Add On bd 12/30 13:36 Order name: Fresh Frozen Plasma EDMS 12/30 14:38 Order name: ABO/RH no charge; Complete Time: 14:38 EDMS 12/30 14:41 Order name: Protime (+INR) EDMS 12/30 14:41 Order name: CBC with Automated Diff EDMS 12/30 14:41 Order name: CBC with Automated Diff EDMS 12/30 14:41 Order name: Comprehensive Metabolic Panel EDMS 12/30 14:41 Order name: Comprehensive Metabolic Panel EDMS 12/30 14:41 Order name: Protime (+INR) EDMS 12/30 14:41 Order name: Protime (+INR) EDMD 12/30 10:50 Order name: IV Start; Complete Time: 11:12 kb Administered Medications: 11:30 Drug: Phytonadione IM 10 mg IM once Route: IM; Site: right deltoid; af3 12:00 Follow up: Response: No adverse reaction af3 12:44 Drug: Ondansetron IVP 4 mg IVP once; over 2 minutes Route: IVP; Site: right wrist; af3 13:11 Follow up: Response: No adverse reaction; Nausea is decreased af3 Disposition Summary: 12/30/24 13:03 Hospitalization Ordered Notes: Hospitalization Status: Inpatient Admission kb Provider: José Miguel Guidry Location: Telemetry/MedSur (Inpatient) kb Condition: Stable kb Problem: new kb Symptoms: are unchanged kb Bed/Room Type: Standard kb Room Assignment: 204(12/30/24 14:49) bd Diagnosis - Supratherapeutic INR kb Forms: - Medication Reconciliation Form kb - SBAR form kb - Leadership Thank You Letter kb Critical care time excluding procedures: 13:13 Critical care time: Bedside Care: 15 minutes, Consultation: 16 minutes. Total time: 31 kb minutes Signatures: Dispatcher [employer] EDMS Asha Mohr, GEOVANNYC [employer]VER-[place] Reza Michelle, RN RN me1 Anna Lee RN RN af3 Corrections: (The following items were deleted from the chart) 11:29 11:11 Pt is a 64 year old male who presents for elevated INR. States he takes . kb kb 14:49 13:03 kb bd
[2024-12-30] MEDS ORDERED: ONDANSETRON 4 MG/2 ML VIAL IV PRN (14:37)
[2024-12-30] MEDS ORDERED: ACETAMINOPHEN 500 MG TAB PO PRN (14:37)
[2024-12-30 15:50] VITALS: O2SAT 93
[2024-12-30 16:19] VITALS: BMI 36.5
[2024-12-30] MEDS: NA CHLORIDE 0.9% 500 ML ONE (17:07)
--- NOTE | 2024-12-30 17:15 | P.HP ---
Certification for Inpatient Patient admitted to: Inpatient With expected LOS: >2 Midnights Practitioner: I am a practitioner with admitting privileges, knowledge of patient current condition, hospital course, and medical plan of care. Services: Services provided to patient in accordance with Admission requirements found in Title 42 Section 412.3 of the Code of Federal Regulations Patient History Date of Service: 12/30/24 Reason for admission: High INR History of Present Illness: 64 yrs old Male Depression; Hyperlipidemia; Cerebrovascular accident; Transient cerebral ischemia; left sided weakness; presents to ER with complaints of Abnormal Lab Results. Patient has a history of DVT, clotting disorder and was on Coumadin. He presents for elevated INR. States his INR was low a couple of months ago so they increased his dose from 5mg to 6mg, but he only had 5mg tablets so he has been taking 7.5mg. Denies any bleeding or other complaints. Patient was assessed in the ER and was admitted for further management of elevated INR Allergies amoxicillin Allergy (Verified 12/30/24 16:31) Itching/Hives/Rash Home medications list reviewed: Yes Home Medications: Citalopram [Celexa*] 20 mg PO DAILY 6PM 08/02/17 Cyanocobalamin (Vitamin B-12) [Vitamin B-12] 2,000 mcg PO DAILY 6PM 12/30/24 Levothyroxine Sodium [Unithroid] 25 mcg PO [id number] 12/30/24 Losartan Potassium [Cozaar*] 50 mg PO DAILY 6PM 12/30/24 Warfarin Sodium [Jantoven] 7.5 mg PO DAILY 6PM 12/30/24 - Past Medical/Surgical History Diabetic: No Past Medical History: Reviewed- Non-Contributory -: Depression -: Clotting disorder -: Hep C -: CVA -: Hyperlipidemia -: dvt -: htn Past Surgical History: Reviewed- Non-Contributory -: vascular surgery 1998 -: gallbladder 1995 -: skin graft/skin flap 1998 -: vascular surgery left common iliac stent. 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 - Family History Father -: Heart disease, Other (see notes) Notes: CABG, [place] - Social History Smoking Status: Never smoker Alcohol use: No CD- Drugs: No Caffeine use: Yes Review of Systems 10-point ROS is otherwise unremarkable Physical Examination - Vital Signs Temperature: 97.5 F Blood Pressure: 140/78 Pulse: 74 Respirations: 20 Pulse Ox (%): 94 - Physical Exam General: Alert, In no apparent distress, Oriented x3 HEENT: Atraumatic, Normocephalic Neck: Supple Respiratory: Clear to auscultation bilaterally, Normal air movement Cardiovascular: Regular rate/rhythm, Normal S1 S2 Capillary refill: <2 Seconds Gastrointestinal: Soft and benign, W/out hepatosplenomegaly Musculoskeletal: No clubbing, No swelling Integumentary: No rashes, No breakdown Neurological: Other (Alert awake nonfocal) Lymphatics: No axilla or inguinal lymphadenopathy - Studies Laboratory Data (last 24 hrs) 12/30/24 12/30/24 12/30/24 11:00 11:00 11:00 WBC 10.50 Hgb 16.3 Hct 49.7 H Plt Count 353 PT 131.6 H INR 12.54 H* Sodium 136 Potassium 3.5 BUN 8 Creatinine 0.96 Glucose 106 Total Bilirubin 1.0 AST 41 H ALT 44 Alkaline Phosphatase 160 H Assessment and Plan - Plan Elevated INR Watch closely for any bleeding Monitor INR closely and daily Will hold Coumadin for now Patient received vitamin K in ED Hypertension Antihypertensives titrated Continue home medications and titrate as needed Hyperlipidemia Continue statin History of DVT Will hold Coumadin for now until INR comes back between 2 and 3 GI/DVT prophylaxis Advanced directive full code Discharge Plan: Home Plan to discharge in: 48 Hours - Advance Directives Does patient have a Living Will: No Does patient have a Durable POA for Healthcare: No - Code Status/Comfort Care Code Status: Full Code Time Spent Managing Pts Care (In Minutes): 48
[2024-12-30] MEDS: ONDANSETRON 4 MG/2 ML VIAL IV PRN (18:00)
[2024-12-30] MEDS: NA CHLORIDE 0.9% 250 ML ONE (19:52)
[2024-12-30] MEDS ORDERED: MORPHINE 2 MG/ML SYR IV PRN (21:05)
[2024-12-30 21:27] LABS: PT Prothrombin Time 35.5 SECONDS (10-13.0); Protime INR 3.25
[2024-12-30] MEDS: ZOLPIDEM TARTRATE 5 MG TABLET PO PRN (21:41)
[2024-12-30] MEDS: HYDROCODONE/APAP 5/325 MG TAB PO PRN (21:41)
[2024-12-31] MEDS: LEVOTHYROXINE SOD 0.025 MG TAB PO SCH (05:36)
[2024-12-31 06:09] LABS: Absolute Lymphocytes (CBC) 3.1 K/uL (0.7-4.9); Hematocrit 44.5 % (39.6-49.0); Hemoglobin 14.8 g/dL (13.6-17.9); MCH 31.6 pg (27.0-35.0); MCHC 33.3 g/dL (32.0-36.0); MCV 94.8 fL (80-100); MPV 9.2 fL (7.6-11.3); Nucleated RBC Absolute Count 0.0 (0-0); Nucleated Red Blood Cells % 0.1 % (0-0); RBC Red Blood Cell Count 4.69 M/uL (4.33-5.43); White Blood Count 10.70 thou/uL (4.3-10.9)
[2024-12-31 06:13] LABS: PT Prothrombin Time 36.9 SECONDS (10-13.0); Protime INR 3.38
[2024-12-31 06:26] LABS: ALT/SGPT 34.0 U/L (16-61); AST/SGOT 23.0 U/L (15-37); Albumin 2.7 g/dL (3.4-5.0); Albumin/Globulin Ratio 0.6 (1.1-1.8); Alkaline Phosphatase 129.0 U/L (45-117); Anion Gap 7.5 mEq/L (5.0-15.0); BUN Blood Urea Nitrogen 13.0 mg/dL (7-18); Globulin 4.2 g/dL (2.3-3.5); Glucose Level 105.0 mg/dL (74-106); Potassium 3.5 mEq/L (3.5-5.1)
[2024-12-31 08:31] VITALS: TEMP 97.8
[2024-12-31 12:12] VITALS: BP 129/65
--- NOTE | 2024-12-31 12:43 | P.DS ---
Admission Date: 12/30/24 Discharge Date: 12/31/24 Disposition: ROUTINE DISCHARGE Discharge Condition: GOOD Reason for Admission: High INR Hospital Course: Elevated INR No bleeding Patient received vitamin K in ED INR improving. DC home on low-dose Coumadin. Hypertension Continue home medications and titrate as needed Hyperlipidemia Continue statin History of DVT Resume Coumadin at 5 mg Hospital course: 64-year-old patient admitted with elevated INR, he was given vitamin K in the emergency room, his INR improved today, when I see the patient today he is doing well without prisca acute problems and feels ready to go home, no obvious bleeding, his Coumadin dose was recently increased from 5 mg to 7.5 mg, I think that is the reason he is INR is elevated, I advised him to go back to 5 mg daily, check INR tomorrow and on Sunday and adjust the Coumadin dose based on the repeat INR's, I discussed with family at bedside as well, both patient and family understands and agrees with the plan. Subjective: No chest pain or shortness of breath. No nausea or vomiting. No abdominal pain. No obvious bleeding. Looks comfortable in the bed. Objective: General appearance: Alert and comfortable CVS: Normal S1 and S2 Lungs: Clear to auscultation bilaterally Abdomen: Soft, bowel sounds present, no tenderness Extremities: 1-2+ b/l lower extremity edema Vital Signs/Physical Exam: Temp Pulse Resp BP Pulse Ox 97.8 F 65 17 129/65 94 12/31/24 12:00 12/31/24 12:00 12/31/24 12:00 12/31/24 12:00 12/31/24 12:00 Laboratory Data at Discharge: WBC 10.70 thou/uL (4.3-10.9) 12/31/24 05:48 Hgb 14.8 g/dL (13.6-17.9) D 12/31/24 05:48 Hct 44.5 % (39.6-49.0) 12/31/24 05:48 Plt Count 305 thou/uL (152-406) 12/31/24 05:48 PT 36.9 SECONDS (10-13.0) H 12/31/24 05:48 INR 3.38 12/31/24 05:48 Sodium 137 mEq/L (136-145) 12/31/24 05:48 Potassium 3.5 mEq/L (3.5-5.1) 12/31/24 05:48 BUN 13 mg/dL (7-18) 12/31/24 05:48 Creatinine 1.37 mg/dL (0.70-1.30) H 12/31/24 05:48 Glucose 105 mg/dL (74-106) 12/31/24 05:48 Total Bilirubin 1.9 mg/dL (0.2-1.0) H 12/31/24 05:48 AST 23 U/L (15-37) 12/31/24 05:48 ALT 34 U/L (16-61) 12/31/24 05:48 Alkaline Phosphatase 129 U/L (45-117) H 12/31/24 05:48 Home Medications: Citalopram [Celexa*] 20 mg PO DAILY 6PM 08/02/17 Cyanocobalamin (Vitamin B-12) [Vitamin B-12] 2,000 mcg PO DAILY 6PM 12/30/24 Levothyroxine Sodium [Unithroid] 25 mcg PO [id number] 12/30/24 Losartan Potassium [Cozaar*] 50 mg PO DAILY 6PM 12/30/24 Warfarin Sodium 5 mg PO DAILY #30 12/31/24 New Medications: Warfarin Sodium 5 mg PO DAILY #30 Followup: Sajan Pratt MD [Primary Care Provider] - 1-2 Days (Follow-up with PCP in 1 to 2 days, check INR tomorrow and on Sunday, adjust Coumadin dose based on INR.) Time spent managing pt's care (in minutes): 34
[2024-12-31] MEDS ORDERED: LOSARTAN POTASSIUM 50 MG TABLET PO SCH (18:00)
[2024-12-31] MEDS ORDERED: CYANOCOBALAMIN 1,000 MCG TAB PO SCH (18:00)
[2024-12-31] MEDS ORDERED: CITALOPRAM 10 MG TABLET PO SCH (18:00)
== END 2024-12-31 13:11 | disposition home or self-care (01) ==
LOC: ER 10:28 → ERHOLD 14:37 → 2ND 15:27
PROVIDERS: ADMIT Hospitalist; ATTEND Hospitalist
DX: R79.1 Abnormal coagulation profile (principal); R53.1 Weakness; I10 Essential (primary) hypertension; E78.5 Hyperlipidemia, unspecified; Z86.718 Personal history of other venous thrombosis and embolism; Z88.1 Allergy status to other antibiotic agents; Z79.01 Long term (current) use of anticoagulants
CPT/HCPCS: 85025 ×2; 36415; 86900; 86850; 85610 ×3; 86901; 86927; 80053 ×2; 96372; 96374; 99285; J3430; J2405 ×2; G0378 ×3; P9059; P9017; J7050; J7040